=== PATIENT | male | born 1950 | race Caucasian/White ===

== ENCOUNTER 2020-07-02 20:33 | Inpatient (IN) | payer MEDICARE, SELFPAY ==
[2020-07-02 20:35] VITALS: BP 165/92; PULSE 121; RESP 42; TEMP 36.6; O2SAT 82; BMI 55.3
[2020-07-02 20:43] LABS: ABG Base Excess -0.8 mmol/L (-2.4-2.3); ABG HCO3 25.5 mmhg (22.0-26.0); ABG Oxygen Saturation 100 % (90-100); ABG PH 7.31 mmol/L (7.35-7.45); ABG PO2 254.9 mmhg (80-100)
--- NOTE | 2020-07-02 20:44 | XR_ITS ---
PROCEDURE: XR CHEST PORTABLE CLINICAL HISTORY: shortness of air Shortness of air COMPARISON: No exams were available for comparison FINDINGS: There is cardiomegaly. Diffuse consolidation involves the right upper and right lower lobe consistent with pneumonia. No acute bony abnormalities. IMPRESSION: Right-sided pneumonia Dictated by: Quinton Aguero MD 07/03/2020 05:09 Quinton Aguero MD in [place] 07/03/2020 05:09
[2020-07-02 20:45] LABS: Allen's Test Acceptable; Oxygen 100 %; Source Right Radial
[2020-07-02 20:46] LABS: ABG PCO2 51.6 mmhg (35.0-45.0)
--- NOTE | 2020-07-02 20:51 | ECG_ITS ---
APPROVED REPORT Exam: Resting ECG HR:104 bpm ECG Measurements Heart Rate 104 AXES QRSd 80 QRS 103 QT 364 T 41 QTc 478 Conclusion Atrial fibrillation with rapid ventricular response Rightward axis Low voltage QRS Abnormal ECG Electronically signed by : Omero Linares, 07/03/2020 11:36:21
[2020-07-02 20:56] LABS: Microscopic, Urine URINE MICROSCOPIC (MICROSCOPIC)
[2020-07-02 20:57] VITALS: RESP 20; RESP 3
[2020-07-02 21:04] LABS: Basophils # 0.1 K/mm3 (0-0.2); Basophils % 0.5 % (0.1-2.0); Eosinophils # 0.1 K/mm3 (0.0-0.4); Eosinophils % 0.5 % (0.1-12.0); Hematocrit 42.5 % (42.0-52.0); Hemoglobin 13.6 g/dL (14.1-18.0); Lymphocytes # 1.9 K/mm3 (0.7-4.5); Lymphocytes % 8.6 % (10-50); Mean Corpuscular HGB Conc 31.9 g/dL (31.8-35.4); Mean Corpuscular Hemoglobin 25.9 pg (27.0-31.2); Mean Corpuscular Volume 81.1 fl (80-94); Mean Platelet Volume 8.7 fl (7.4-10.4); Monocytes # 1.1 K/mm3 (0.1-1.0); Monocytes % 4.9 % (1.7-9.3); Neutrophils # 18.5 K/mm3 (1.8-7.8); Neutrophils % 85.5 % (37.0-80.0); Platelet Count 208 K/mm3 (142-424); Red Blood Count 5.23 M/mm3 (4.60-6.20); Red Cell Distribution Width 16.3 % (11.5-17.5)
[2020-07-02 21:09] LABS: White Blood Count 21.6 K/mm3 (4.8-10.8)
[2020-07-02 21:10] LABS: MANUAL DIFFERENTIAL MANUAL DIFFERENTIAL (MANUAL DIFF)
[2020-07-02 21:13] LABS: Lactic Acid 1.5 mmol/L (0.7-2.1)
[2020-07-02 21:13] LABS: Anion Gap 12.2 mEq/L (5-15); Blood Urea Nitrogen 17 mg/dl (9-20); Calcium 9.3 mg/dl (8.4-10.2); Carbon Dioxide 32 mmol/L (22.0-30.0); Chloride 102 mmol/L (98-107); Creatinine Clearance Estimated 63 mL/min (50-200); Estimated Glomerular Filt Rate 66 ml/min (>60); GFR (African American) 80 ML/MIN (>60); Glucose 305 mg/dl (74-100); Potassium 4.2 mmoL/L (3.5-5.1); Sodium 142 mmol/L (136-145)
[2020-07-02 21:22] LABS: Anisocytosis 1+; Hypochromasia 2+; Lymphocytes % 7 % (10-50); Microcytosis 1+; Monocytes % 1 % (2-9); Neutrophils % 86 % (42-76); Platelet Estimate Normal; Total Cells Counted 100
[2020-07-02 21:26] LABS: Coronavirus 19 IgG Antibody Negative (Negative); Coronavirus 19 IgM Antibody Negative (Negative)
[2020-07-02 21:27] LABS: NT Pro Brain Natriuretic Pep. 3400 pg/mL (0-125)
[2020-07-02 21:29] LABS: Appearance,Urine CLEAR (Clear); Bilirubin,Urine Negative (Negative); Blood, Urine 2+ (Negative); Color,Urine YELLOW (Yellow); Glucose,Urine (UA) TRACE (Negative); Ketones,Urine Negative (Negative); Leukocyte Esterase,Urine Negative (Negative); Nitrate,Urine POSITIVE (Negative); Protein,Urine 3+ (Negative); Specific Gravity, Urine 1.025 (1.005-1.030)
[2020-07-02 21:31] LABS: Procalcitonin 0.154 ng/mL (0.0-2.0); Troponin I < 0.01 ng/ml (0.00-0.034)
[2020-07-02 21:32] LABS: Amorphous Sediment,Urine Trace /lpf; Bacteria,Urine Trace /lpf; Mucus,Urine Trace /lpf; RBC,Urine 20-50 #/hpf (0-3); WBC,Urine 20-50 #/hpf (0-3)
[2020-07-02 21:45] LABS: Thyroid Stimulating Hormone 2.03 uIU/mL (0.465-4.68)
[2020-07-02 22:01] VITALS: BP 141/90; PULSE 103; RESP 22; O2SAT 95
--- NOTE | 2020-07-02 22:09 | HMH.EDSOB ---
ED Disposition Clinical Impression: JOB (obstructive sleep apnea), Severe sepsis with acute organ dysfunction Respiratory failure with hypercapnia Qualifiers: Chronicity: acute on chronic Qualified Code(s): J96.22 - Acute and chronic respiratory failure with hypercapnia Congestive heart failure Qualifiers: Heart failure type: unspecified Heart failure chronicity: acute on chronic Qualified Code(s): I50.9 - Heart failure, unspecified A-fib Qualifiers: Atrial fibrillation type: longstanding persistent Qualified Code(s): I48.11 - Longstanding persistent atrial fibrillation Obesity Qualifiers: Obesity type: due to excess calories Obesity classification: adult class 3 (BMI >= 40) Serious obesity comorbidity presence: with serious comorbidity Body mass index: BMI 50.0-59.9 Qualified Code(s): E66.01 - Morbid (severe) obesity due to excess calories UTI (urinary tract infection) Qualifiers: Urinary tract infection type: site unspecified Hematuria presence: without hematuria Qualified Code(s): N39.0 - Urinary tract infection, site not specified Diabetes mellitus Qualifiers: Diabetes mellitus type: type 2 Diabetes mellitus mcfp insulin use: unspecified mcfp insulin use status Diabetes mellitus complication status: with other specified complication Qualified Code(s): E11.69 - Type 2 diabetes mellitus with other specified complication Disposition: Admitted As Inpatient Condition on Discharge: Serious - Critical Care Critical Care Time: No Attestation: On 07/02/20, the high probability of a clinically significant, sudden or life threatening deterioration of the following system(s) required my full and direct attention, intervention and personal management. The time I documented below is in addition to time spent performing reported procedures but includes the following listed in this critical care notation. Medical Decision Making - Medical Records Medical records reviewed: Yes: I reviewed the patient's medical records. - Julio Inquiry Pt receiving controlled substance: No Vital Signs: 07/02/20 20:35 07/02/20 22:01 07/02/20 22:30 Temperature 97.8 F Temperature Source Rectal Pulse Rate [Right Brachial] 121 H 103 H 105 H Respiratory Rate 42 H 22 22 Blood Pressure [Right Arm] 165/92 H 141/90 H 168/111 H Blood Pressure Mean [Right Arm] 116 107 130 Blood Pressure Source [Right Arm] Automatic Cuff Automatic Cuff Automatic Cuff Blood Pressure Position [Right Arm] Supine Sitting Sitting 02 Sat by Pulse Oximetry 82 L 95 94 L Oxygen Delivery Method Room Air CPAP BiPAP - Lab Data Lab results reviewed: Yes: I reviewed the patient's lab results. Lab Results 07/02/20 20:37: Urine Color Yellow, Urine Appearance Clear, Urine pH 7.0, Ur Specific [place] 1.025, Urine Protein 3+, Urine Glucose (UA) Trace, Urine Ketones Negative, Urine Blood 2+, Urine Nitrate Positive, Urine Bilirubin Negative, Urine Urobilinogen 2.0, Ur Leukocyte Esterase Negative, Urine RBC 20-50, Urine WBC 20-50, Amorphous Sediment Trace, Urine Bacteria Trace, Urine Mucus Trace 07/02/20 20:37: WBC 21.6 H*, RBC 5.23, Hgb 13.6 L, Hct 42.5, MCV 81.1, MCH 25.9 L, MCHC 31.9, RDW 16.3, Plt Count 208, MPV 8.7, Neut % (Auto) 85.5 H, Lymph % (Auto) 8.6 L, [place] % (Auto) 4.9, Eos % (Auto) 0.5, Baso % (Auto) 0.5, Neut # (Auto) 18.5 H, Lymph # (Auto) 1.9, [place] # (Auto) 1.1 H, Eos # (Auto) 0.1, Baso # (Auto) 0.1, Total Counted 100, Neutrophils % (Manual) 86 H, Band Neutrophils % 6.0, Lymphocytes % (Manual) 7 L, Monocytes % (Manual) 1 L, Platelet Estimate Normal, Hypochromasia 2+, Anisocytosis 1+, Microcytosis 1+ 07/02/20 20:37: Sodium 142, Potassium 4.2, Chloride 102, Carbon Dioxide 32 H, Anion Gap 12.2, BUN 17, Creatinine 1.10, Estimated Creat Clear 63, Estimated GFR 66, Est GFR ( Amer) 80, Glucose 305 H, Calcium 9.3, Troponin I < 0.01, NT-Pro-B Natriuret Pep 3400 H, Procalcitonin 0.154, TSH 2.03, Thyroxine (T4) 11.0 07/02/20 20:37: SARS-CoV-2 IgG Ab (Rapid) Ne
[2020-07-02 22:30] VITALS: BP 168/111; PULSE 105; RESP 22; O2SAT 94
[2020-07-02 22:30] LABS: Adenovirus,PCR Not Detected (NotDetected); Bordetella Pertussis Not Detected (NotDetected); Chlamydophila Pneumoniae, PCR Not Detected (NotDetected); Coronavirus 19, PCR Not Detected (NotDetected); Coronavirus 229E Not Detected (NotDetected); Coronavirus NL63 Not Detected (NotDetected); Coronavirus OC43 Not Detected (NotDetected); Coronovirus HKU1,PCR Not Detected (NotDetected); Human Metapneumovirus Not Detected (NotDetected); Influenza A, PCR Not Detected (NotDetected); Influenza AH1, 2009 Not Detected (NotDetected); Influenza AH1, PCR Not Detected (NotDetected); Influenza AH3,PCR Not Detected (NotDetected); Influenza B, PCR Not Detected (NotDetected); Mycoplasma Pneumoniae, PCR Not Detected (NotDetected); Parainfluenza 1, PCR Not Detected (NotDetected); Parainfluenza 2, PCR Not Detected (NotDetected); Parainfluenza 3, PCR Not Detected (NotDetected); Parainfluenza 4, PCR Not Detected (NotDetected); Respiratory Syncytial Virus Not Detected (NotDetected); Rhinovirus/Enterovirus Not Detected (NotDetected)
--- NOTE | 2020-07-02 22:58 | PC.NURSE ---
call placed to house, bed assignment obtained
[2020-07-02 23:30] VITALS: BP 156/89; PULSE 87; RESP 23; O2SAT 96
[2020-07-03] VITALS (18 sets, daily range): BP systolic 147–198; BP diastolic 86–114; PULSE 59–110; RESP 18–27; TEMP 36.3–36.8; O2SAT 92–100; BMI 60.5; BMI 61.2; BMI 60.9
[2020-07-03 00:34] LABS: Troponin I < 0.01 ng/ml (0.00-0.034)
--- NOTE | 2020-07-03 01:19 | PC.NURSE ---
PT ARRIVED TO FLOOR VIA STRETCHER AT [id number].
[2020-07-03 03:08] LABS: Basophils % 0.2 % (0.1-2.0); Eosinophils % 0.1 % (0.1-12.0); Hematocrit 41.4 % (42.0-52.0); Hemoglobin 13.2 g/dL (14.1-18.0); Lymphocytes # 0.6 K/mm3 (0.7-4.5); Mean Corpuscular HGB Conc 31.8 g/dL (31.8-35.4); Mean Corpuscular Hemoglobin 25.6 pg (27.0-31.2); Mean Corpuscular Volume 80.5 fl (80-94); Mean Platelet Volume 8.6 fl (7.4-10.4); Monocytes # 0.3 K/mm3 (0.1-1.0); Monocytes % 2.6 % (1.7-9.3); Neutrophils # 11.2 K/mm3 (1.8-7.8); Neutrophils % 92.2 % (37.0-80.0); Platelet Count 140 K/mm3 (142-424); Red Blood Count 5.14 M/mm3 (4.60-6.20); Red Cell Distribution Width 16.5 % (11.5-17.5); White Blood Count 12.2 K/mm3 (4.8-10.8)
[2020-07-03 03:13] LABS: Chloride 101 mmol/L (98-107); Sodium 141 mmol/L (136-145)
[2020-07-03 03:14] LABS: Potassium 4.3 mmoL/L (3.5-5.1)
[2020-07-03 03:16] LABS: Blood Urea Nitrogen 18 mg/dl (9-20); Creatinine Clearance Estimated 57 mL/min (50-200); Estimated Glomerular Filt Rate 66 ml/min (>60); GFR (African American) 80 ML/MIN (>60)
[2020-07-03 03:17] LABS: Anion Gap 9.3 mEq/L (5-15); Calcium 9.3 mg/dl (8.4-10.2); Carbon Dioxide 35 mmol/L (22.0-30.0); Cholesterol 140 mg/dl (140-200); Glucose 332 mg/dl (74-100); Magnesium 2.3 mg/dl (1.6-2.3); Triglycerides 113 mg/dl (30-150); VLDL Cholesterol 23 mg/dL (0-40)
[2020-07-03 03:29] LABS: Troponin I 0.02 ng/ml (0.00-0.034)
[2020-07-03 03:43] LABS: Chol/HDL Ratio 5.6 (1-3.5); HDL Cholesterol 25 mg/dl (40-60)
--- NOTE | 2020-07-03 04:26 | PC.WOUNDNOTE ---
Wound Location: BLE rough, scaly skin
--- NOTE | 2020-07-03 04:28 | PC.WOUNDNOTE ---
Wound Location: Scabbed & reddened areas to R ABD
--- NOTE | 2020-07-03 06:13 | PC.NURSE ---
YOHANA HOLLINS NOTIFIED OF CONSULT.
--- NOTE | 2020-07-03 06:45 | PC.NURSE ---
Pt is A&Ox4 and has rested intermittently this shift. Pt has diuresed well with a total of 3,350ml post Lasix administration in the ER. Pt has denied any SOA or dyspnea t/o shift. Lungs sounds clear but diminished and SaO2 has been 99% on Bipap. Pt tolerated mask well. 3 moderate sized scabbed areas with mild redness outside of scab to R ABD, no heat or tenderness noted. Rough, scaly skin to BLE. Bello cath in place draining clear ylw urine to gravity. Controlled Afib on tele. Pt continues to be HTN this shift. Call light within reach.
--- NOTE | 2020-07-03 07:18 | HMH.PHAVTE ---
[facility] Pharmacy VTE Monitoring - Patient Demographics Admission date: 07/02/20 Report Date: 07/03/20 Time: 07:18 Allergies/Adverse Reactions: Patient Allergies No Known Allergies Allergy (Verified 07/02/20 20:44) Height: 1.68 m Weight: 171.9 kg Patient Problems: Current Active Problems Respiratory failure with hypercapnia (Acute) Congestive heart failure (Acute) A-fib (Acute) Obesity (Acute) JOB (obstructive sleep apnea) (Acute) Severe sepsis with acute organ dysfunction (Acute) UTI (urinary tract infection) (Acute) Diabetes mellitus (Acute) - VTE Risk Labs: VTE Related Lab Results Hgb 13.2 g/dL (14.1-18.0) L 07/03/20 03:00 Hct 41.4 % (42.0-52.0) L 07/03/20 03:00 Plt Count 140 K/mm3 (142-424) L D 07/03/20 03:00 BUN 18 mg/dl (9-20) 07/03/20 03:00 Creatinine 1.10 mg/dl (0.66-1.25) 07/03/20 03:00 Estimated Creat Clear 57 mL/min (50-200) 07/03/20 03:00 VTE Score: 6 VTE Risk Level: Moderate Risk - Prophylaxis VTE Prophylaxis Ordered?: Yes Types of VTE Prophylaxis: TEDS Knee High, Pharmacological Location of Applied Device: Bilateral Lower Extremeties Pharmacologic Type: Other (ELIQUIS)
--- NOTE | 2020-07-03 07:35 | HMH.CNCARD ---
History of Present Illness Consult date: 07/03/20 Requesting physician: John Milligan Consult reason: congestive heart failure Chief complaint: SOA Additional Medical History:: 1. DM, treated for 6 yrs 2. HTN, treated for many years 3. History of tobacco use, discontinued about 2004, formerly smoked 2 ppd A. COPD 4. Obesity with BMI >60 A. JOB with CPAP use at home at night 5. Hyperthyroidism, s/p medical therapy 6. History of knee surgery with pin placement 7. Atrial fibrillation A. Chronic anticoagulation therapy with Eliquis B. CHADS-VASc score of 4 (age, HTN, DM, CHF) History of present illness: 69-year-old white male with multiple medical problems as noted above presented to the emergency department for acute shortness of breath while ambulating at home. Patient has a longstanding history of COPD and obstructive sleep apnea for which he uses BiPAP at night. Patient discontinued tobacco use 15 years ago. He has chronic atrial fibrillation for which he takes Eliquis therapy with no history of TIA/CVA symptoms. He has been treated for diabetes for about 6 years and has some neuropathy symptoms in his feet. Patient denies any history of myocardial infarction or coronary stenting. Pt has been on BiPAP since admission and is breathing better after significant diuresis and being started on antibiotics. EKG is a.fib with mild RVR and RAD. No acute process noted. Troponins WNL x 3. [facility] History Medical History: Reports:: Atrial Fibrillation, Congestive Heart Failure, Diabetes Mellitus Type 2, Hypertension, Peripheral Artery Disease Denies:: Cancer, Diabetes Mellitus Type 1, Internal Pacemaker *Have you ever received a pneumonia vaccine?: Yes *Have you received a flu vaccine this season?: Yes Other Surgeries: No: Pacemaker - *Social History Alcohol Intake: never *Occupational Status:: retired *Travel in the last 8 weeks: None Family Hx:: Non-contributory Meds Home Medications Medication Instructions Recorded Confirmed Type Apixaban [Eliquis] 5 mg PO BID 07/02/20 07/03/20 History Aspirin [Aspirin 81mg chewable 81 mg PO DAILY 07/02/20 07/02/20 History tab] Fosinopril Sodium 40 mg PO DAILY 07/02/20 07/02/20 History Metformin HCl [Metformin 1000mg 1,000 mg PO BIDWM 07/02/20 07/03/20 History Tablets] Sertraline HCl [Zoloft 50mg tablet] 50 mg PO DAILY 07/02/20 07/02/20 History allopurinoL [Zyloprim] 300 mg PO DAILY 07/02/20 07/02/20 History carvediloL [Carvedilol 25mg Tab] 25 mg PO BID 07/03/20 07/03/20 History glipiZIDE [Glucotrol 5mg tablet] 10 mg PO BID 07/03/20 07/03/20 History hydroCHLOROthiazide [HCTZ 25mg 25 mg PO DAILY 07/03/20 07/03/20 History tab] Allergies Allergy/AdvReac Type Severity Reaction Status Date / Time No Known Allergies Allergy Verified 07/02/20 20:44 Exam Vital signs and Labs for Last 24 Hours: Temp Pulse Resp BP Pulse Ox 98.2 F 94 H 23 198/98 H 99 07/03/20 04:00 07/03/20 04:00 07/03/20 04:00 07/03/20 04:00 07/03/20 04:00 Laboratory Results - last 24 hr 07/02/20 20:37: Urine Color Yellow, Urine Appearance Clear, Urine pH 7.0, Ur Specific [place] 1.025, Urine Protein 3+, Urine Glucose (UA) Trace, Urine Ketones Negative, Urine Blood 2+, Urine Nitrate Positive, Urine Bilirubin Negative, Urine Urobilinogen 2.0, Ur Leukocyte Esterase Negative, Urine RBC 20-50, Urine WBC 20-50, Amorphous Sediment Trace, Urine Bacteria Trace, Urine Mucus Trace 07/02/20 20:37: WBC 21.6 H*, RBC 5.23, Hgb 13.6 L, Hct 42.5, MCV 81.1, MCH 25.9 L, MCHC 31.9, RDW 16.3, Plt Count 208, MPV 8.7, Neut % (Auto) 85.5 H, Lymph % (Auto) 8.6 L, [place] % (Auto) 4.9, Eos % (Auto) 0.5, Baso % (Auto) 0.5, Neut # (Auto) 18.5 H, Lymph # (Auto) 1.9, [place] # (Auto) 1.1 H, Eos # (Auto) 0.1, Baso # (Auto) 0.1, Total Counted 100, Neutrophils % (Manual) 86 H, Band Neutrophils % 6.0, Lymphocytes % (Manual) 7 L, Monocytes % (Manual) 1 L, Platelet Estimate Normal, Hypochromasia 2+, Anisocytosi
[2020-07-03 07:41] LABS: POC Glucose,Bedside 308 (70-110)
--- NOTE | 2020-07-03 08:00 | CA_ITS ---
APPROVED REPORT EXAM: Comprehensive 2D, Doppler, and color-flow Echocardiogram [place] Installer: Angeline Alcantara CRT Ht: 5 ft 9 in Wt: 375lbs BSA: 2.70 BP: 168/111 mmHg Indications: Congestive Heart Failure, COPD, Shortness of Breath, Atrial Fibrillation, Diabetes, Obesity, sepsis 2D Dimensions Aortic Root 2.84 cm LVOT 2.13 cm (M/F) 1.5-2.5 M-Mode Dimensions RVDd 3.51 cm (0.9-2.6) LA Diam 5.11 cm (1.9-4.0) LVDd 6.11 cm (3.5-5.7) Ao Diam 4.20 cm (2.0-3.7) LVDs 4.54 cm (3.5-5.7) IVSd 1.53 cm (0.6-1.1) PWd 1.91 cm (0.6-1.1) EF (Teich) 49.70% FS 25.70% EDV (Teich) 187.60 mL ESV (Teich) 94.40 mL LV Diastology E Decel Time 150.00 (160-240 msec) E/A Ratio 1.25 Aortic Valve AI PHT 494.00 ms AO Peak GR. 5.80 mmHg Mitral Valve MV E Max Aaron. 107.00 (40-130 cm/s) MV A Velocity 86.00 (40-130 cm/s) E/A Ratio 1.25 MV Decel. Time 150.00 (160-240 ms) MV PHT 44.00 ms Pulmonary Valve PV Peak Velocity 72.00 (50-150 cm/s) Tricuspid Valve TR P. Velocity 255.00 cm/s Left Ventricle Technically very difficult and poor study because of the patient factors and poor acoustic windows. Repeat study with Definity contrast is recommended. Endocardial surfaces are very poorly visualized. Left atrium is moderately enlarged, left ventricle is normal size, mild concentric left ventricular hypertrophy, probably preserved left ventricular systolic function, visually estimated ejection fraction is approximately 50%, wall motion analysis is difficult from this study. Diastolic parameters are inconclusive. Right Ventricle Right atrium and right ventricle are normal size and contractility. Aortic Valve Aortic valve is thickened and calcified, there is no aortic stenosis, there is mild aortic insufficiency. Mitral Valve Mitral valve is grossly normal, there is mild mitral regurgitation. Tricuspid Valve Tricuspid valve is grossly normal, there is mild tricuspid regurgitation, tricuspid regurgitation jet velocity is inadequate for calculation of the right ventricular systolic pressure. Pulmonic Valve Pulmonic valve is poorly visualized. Great Vessels Aortic root is normal size. Pericardium Small pericardial effusion noted Conclusion 1. Technically very difficult and poor study as described above, if clinically indicated repeat study with Definity contrast is recommended. Probably preserved left ventricular systolic function, visually estimated ejection fraction 50% as described above, diastolic parameters are inconclusive. 2. Moderately enlarged left atrium. 3. Mild mitral and tricuspid regurgitation. 4. Small pericardial effusion noted. Electronically signed by : Himanshu Griggs, 07/03/2020 10:37:19
--- NOTE | 2020-07-03 08:32 | HMH.PHAINT ---
home medication list clarified with [facility]
--- NOTE | 2020-07-03 09:01 | HMH.HP ---
*Admission Date: 07/02/20 *Chief complaint: soa *History of present illness: 69-year-old male presented to emergency department for acute shortness of breath while ambulating at home. History of COPD,diabetes and obstructive sleep apnea for which he uses BiPAP at night. Hx of chronic atrial fibrillation for which he takes Eliquis therapy. Chest x ray on admission states Right-sided pneumonia. Pt admitted for pneumonia and CHF, will consult cardiology and pulmonary. [facility] History I have reviewed the patient's past medical history: Yes Medical History: Reports:: Atrial Fibrillation, Congestive Heart Failure, Diabetes Mellitus Type 2, Hypertension, Peripheral Artery Disease Denies:: Cancer, Diabetes Mellitus Type 1, Internal Pacemaker *Have you ever received a pneumonia vaccine?: Yes *Have you received a flu vaccine this season?: Yes Other Surgeries: No: Pacemaker - *Social History Alcohol Intake: never *Occupational Status:: retired *Travel in the last 8 weeks: None Family Hx:: No significant family history Review of Systems - Review of Systems Review of systems:: pertinent systems reviewed and negative unless documented below - Constitutional Reports fatigue, Denies body ache(s) - Eyes Denies change in vision - ENT Denies bleeding gums - *Cardiovascular Reports shortness of breath, Reports shortness of breath with activity, Denies chest pain at rest, Denies chest pain with activity - *Respiratory Reports shortness of breath, Reports shortness of breath with activity - *Gastrointestinal Denies nausea, Denies vomiting - *Genitourinary Denies urinary frequency - *Musculoskeletal Denies joint pain - Integumentary/Breasts Reports sores, Denies bleeding lesions, Denies rash - *Neurologic Reports dizziness, Denies headache(s), Denies seizure-like activity - Psychiatric Denies anxiety - Endocrine Denies excessive sweating - Hematologic/Lymphatic Denies easy bruising - Allergic/Immunologic Denies itchy eyes Meds Home Medications Medication Instructions Recorded Confirmed Type Apixaban [Eliquis] 5 mg PO BID 07/02/20 07/03/20 History Aspirin [Aspirin 81mg chewable 81 mg PO DAILY 07/02/20 07/02/20 History tab] Fosinopril Sodium 40 mg PO DAILY 07/02/20 07/02/20 History Metformin HCl [Metformin 1000mg 1,000 mg PO BIDWM 07/02/20 07/03/20 History Tablets] Sertraline HCl [Zoloft 50mg tablet] 50 mg PO DAILY 07/02/20 07/02/20 History allopurinoL [Zyloprim] 300 mg PO DAILY 07/02/20 07/02/20 History carvediloL [Carvedilol 25mg Tab] 25 mg PO BID 07/03/20 07/03/20 History glipiZIDE [Glucotrol 5mg tablet] 10 mg PO BID 07/03/20 07/03/20 History hydroCHLOROthiazide [HCTZ 25mg 25 mg PO DAILY 07/03/20 07/03/20 History tab] Allergies Allergy/AdvReac Type Severity Reaction Status Date / Time No Known Allergies Allergy Verified 07/02/20 20:44 Exam Vital signs and Labs for Last 24 Hours: Temp Pulse Resp BP Pulse Ox 98.2 F 94 H 23 198/98 H 99 07/03/20 04:00 07/03/20 04:00 07/03/20 04:00 07/03/20 04:00 07/03/20 04:00 Laboratory Results - last 24 hr 07/02/20 20:37: Urine Color Yellow, Urine Appearance Clear, Urine pH 7.0, Ur Specific [place] 1.025, Urine Protein 3+, Urine Glucose (UA) Trace, Urine Ketones Negative, Urine Blood 2+, Urine Nitrate Positive, Urine Bilirubin Negative, Urine Urobilinogen 2.0, Ur Leukocyte Esterase Negative, Urine RBC 20-50, Urine WBC 20-50, Amorphous Sediment Trace, Urine Bacteria Trace, Urine Mucus Trace 07/02/20 20:37: WBC 21.6 H*, RBC 5.23, Hgb 13.6 L, Hct 42.5, MCV 81.1, MCH 25.9 L, MCHC 31.9, RDW 16.3, Plt Count 208, MPV 8.7, Neut % (Auto) 85.5 H, Lymph % (Auto) 8.6 L, [place] % (Auto) 4.9, Eos % (Auto) 0.5, Baso % (Auto) 0.5, Neut # (Auto) 18.5 H, Lymph # (Auto) 1.9, [place] # (Auto) 1.1 H, Eos # (Auto) 0.1, Baso # (Auto) 0.1, Total Counted 100, Neutrophils % (Manual) 86 H, Band Neutrophils % 6.0, Lymphocytes % (Manual) 7 L, Monocytes % (Manual)
--- NOTE | 2020-07-03 14:00 | PC.NURSE ---
PT GIVEN NEBULIZER CUP AND INSTRCTED ON WHAT TO DO. NO SAMPLE COULD BE GIVEN AT THIS TIME. CUP LEFT AT BEDSIDE.
--- NOTE | 2020-07-03 15:14 | HMH.PULMCON ---
*Admission Date: 07/02/20 *Reason for consult:: Acute hypoxic respiratory failure *History of present illness: Mr. Grimaldo is a 69-year-old male prior history of COPD, CHF, JOB presented to the hospital with worsening respiratory failure not associated with any fevers chills or weight loss. Patient admits multiple episodes of similar symptoms previously. Denies any sick contacts. [facility] [place] History Medical History: Reports:: Atrial Fibrillation, Congestive Heart Failure, Diabetes Mellitus Type 2, Hypertension, Peripheral Artery Disease Denies:: Cancer, Diabetes Mellitus Type 1, Internal Pacemaker *Have you ever received a pneumonia vaccine?: Yes *Have you received a flu vaccine this season?: Yes Other Surgeries: No: Pacemaker - *Social History Alcohol Intake: never *Occupational Status:: retired *Travel in the last 8 weeks: None Family Hx:: Non-contributory ROS - Cons Denies fatigue, Denies fever(s) - Card Reports shortness of breath, Reports shortness of breath with activity, Reports leg swelling - Resp Respiratory: Reports shortness of breath, Denies change in phlegm color, Reports chest congestion, Reports cough, Reports non-productive cough, Reports dyspnea, Reports dyspnea on exertion, Denies excessive phlegm production, Denies coughing up blood, Denies pain on inspiration, Denies pain with cough, Denies cough with sputum production Meds Home Medications Medication Instructions Recorded Confirmed Type Apixaban [Eliquis] 5 mg PO BID 07/02/20 07/03/20 History Aspirin [Aspirin 81mg chewable 81 mg PO DAILY 07/02/20 07/02/20 History tab] Fosinopril Sodium 40 mg PO DAILY 07/02/20 07/02/20 History Metformin HCl [Metformin 1000mg 1,000 mg PO BIDWM 07/02/20 07/03/20 History Tablets] Sertraline HCl [Zoloft 50mg tablet] 50 mg PO DAILY 07/02/20 07/02/20 History allopurinoL [Zyloprim] 300 mg PO DAILY 07/02/20 07/02/20 History carvediloL [Carvedilol 25mg Tab] 25 mg PO BID 07/03/20 07/03/20 History glipiZIDE [Glucotrol 5mg tablet] 10 mg PO BID 07/03/20 07/03/20 History hydroCHLOROthiazide [HCTZ 25mg 25 mg PO DAILY 07/03/20 07/03/20 History tab] Allergies Allergy/AdvReac Type Severity Reaction Status Date / Time No Known Allergies Allergy Verified 07/02/20 20:44 Exam - Constitutional Constitutional:: no acute distress, comfortable - HENMT Exam HENMT: atraumatic - Eye Exam Eyes:: eyelids normal - Neck Exam Neck:: thyroid normal - Respiratory Exam Respiratory:: bibailar crackels heard, no respiratory distress - Cardiovascular Exam Cardiac:: S1, S2 - GI Exam GI:: soft, obese - Skin Exam Skin: warm - Neurological Exam Neurological: alert, awake, normal cognition - Extremities Exam Extremities: no cyanosis, no clubbing, edema - Psychiatric Exam Psychiatric: normal affect Internal Medicine - CN: Reslt - Labs CBC & Chem 7: 07/03/20 03:00 07/03/20 03:00 Labs: Short CBC 07/02/20 07/03/20 Range/Units 20:37 03:00 WBC 21.6 H* 12.2 H D (4.8-10.8) K/mm3 Hgb 13.6 L 13.2 L (14.1-18.0) g/dL Hct 42.5 41.4 L (42.0-52.0) % Plt Count 208 140 L D (142-424) K/mm3 BMP 07/02/20 07/03/20 20:37 03:00 Sodium 142 141 Potassium 4.2 4.3 Chloride 102 101 Carbon Dioxide 32 H 35 H BUN 17 18 Creatinine 1.10 1.10 Glucose 305 H 332 H Calcium 9.3 9.3 Cardiac Enzymes 07/02/20 07/02/20 07/03/20 Range/Units 20:37 23:55 03:00 Troponin I < 0.01 < 0.01 0.02 (0.00-0.034) ng/ml Urine 07/02/20 Range/Units 20:37 Urine Color Yellow (Yellow) Urine Appearance Clear (Clear) Urine pH 7.0 (5.0-8.5) Ur Specific [place] 1.025 (1.005-1.030) Urine Protein 3+ (Negative) Urine Glucose (UA) Trace (Negative) - ABG Interpretation ABG results: 07/02/20 20:41 ABG pH 7.31 L ABG pCO2 51.6 H ABG pO2 254.9 H ABG HCO3 25.5 ABG Total CO2 27.0 ABG O2 Saturation 100 ABG Base Excess -0.8 Assess
[2020-07-03 16:14] LABS: POC Glucose,Bedside 283 (70-110)
--- NOTE | 2020-07-03 16:38 | PC.NURSE ---
Told KENDRA King about BP running high
--- NOTE | 2020-07-03 18:58 | PC.NURSE ---
Pt's O2 sat on room air = 90%,
[2020-07-03 20:56] LABS: POC Glucose,Bedside 203 (70-110)
--- NOTE | 2020-07-03 23:40 | PC.NURSE ---
RT collected SPT and sent it to lab from 2nd floor at this time.
--- NOTE | 2020-07-03 23:59 | PC.NURSE ---
spoke to Marcos with pharmacy regarding vancomycin dosing, states to give 3g loading dose in 500ml of ns then 2.5g in 500ml of ns every 12 hours, repeated back to pharmacist at this time
[2020-07-04] VITALS (11 sets, daily range): BP systolic 133–190; BP diastolic 66–118; PULSE 50–92; RESP 18–26; TEMP 36.3–36.7; O2SAT 87–99; BMI 608411.9
--- NOTE | 2020-07-04 04:32 | PC.NURSE ---
pt is alert and oriented and able to make needs known, pt has rested well thorughout shift with no episodes of sob, bipap remains in place, pt was started on vancomycin per md orders d/t gram positive cocci in clusters and pcr of staphylococcus, pt placed in contact precaution, crackles noted throughout lungs, no cough noted, heart rate regular, bs x 4, edema continues to hands and tibial nonpitting, cristobal catheter patent and draining ella colored urine, no needs at this time, call light within reach will continue to monitor at this time
[2020-07-04 05:41] LABS: POC Glucose,Bedside 198 (70-110)
[2020-07-04 07:03] LABS: Basophils % 0.3 % (0.1-2.0); Eosinophils # 0.1 K/mm3 (0.0-0.4); Eosinophils % 0.4 % (0.1-12.0); Hematocrit 37.2 % (42.0-52.0); Hemoglobin 12.4 g/dL (14.1-18.0); Lymphocytes # 1.8 K/mm3 (0.7-4.5); Lymphocytes % 14.6 % (10-50); Mean Corpuscular HGB Conc 33.3 g/dL (31.8-35.4); Mean Corpuscular Hemoglobin 27.1 pg (27.0-31.2); Mean Corpuscular Volume 81.3 fl (80-94); Mean Platelet Volume 8.6 fl (7.4-10.4); Monocytes # 0.7 K/mm3 (0.1-1.0); Monocytes % 5.4 % (1.7-9.3); Neutrophils # 9.8 K/mm3 (1.8-7.8); Neutrophils % 79.3 % (37.0-80.0); Platelet Count 157 K/mm3 (142-424); Red Blood Count 4.58 M/mm3 (4.60-6.20); Red Cell Distribution Width 16.8 % (11.5-17.5); White Blood Count 12.4 K/mm3 (4.8-10.8)
[2020-07-04 07:12] LABS: Anion Gap 6.5 mEq/L (5-15); Blood Urea Nitrogen 25 mg/dl (9-20); Calcium 9.1 mg/dl (8.4-10.2); Carbon Dioxide 37 mmol/L (22.0-30.0); Chloride 102 mmol/L (98-107); Creatinine Clearance Estimated 153 mL/min (50-200); Estimated Glomerular Filt Rate 66 ml/min (>60); GFR (African American) 80 ML/MIN (>60); Glucose 193 mg/dl (74-100); Potassium 3.5 mmoL/L (3.5-5.1); Sodium 142 mmol/L (136-145)
--- NOTE | 2020-07-04 09:32 | HMH.PHACONS ---
- Pharmacy Consult Date: 07/04/20 Time: 09:32 Referring provider: DR. SCHRADER Reason for Consult:: VANCOMYCIN DOSING Allergies and ADEs:: Allergies Allergy/AdvReac Type Severity Reaction Status Date / Time No Known Allergies Allergy Verified 07/02/20 20:44 Home Medications:: Home Medications Medication Instructions Recorded Confirmed Type Apixaban [Eliquis] 5 mg PO BID 07/02/20 07/03/20 History Aspirin [Aspirin 81mg chewable 81 mg PO DAILY 07/02/20 07/02/20 History tab] Fosinopril Sodium 40 mg PO DAILY 07/02/20 07/02/20 History Metformin HCl [Metformin 1000mg 1,000 mg PO BIDWM 07/02/20 07/03/20 History Tablets] Sertraline HCl [Zoloft 50mg tablet] 50 mg PO DAILY 07/02/20 07/02/20 History allopurinoL [Zyloprim] 300 mg PO DAILY 07/02/20 07/02/20 History carvediloL [Carvedilol 25mg Tab] 25 mg PO BID 07/03/20 07/03/20 History glipiZIDE [Glucotrol 5mg tablet] 10 mg PO BID 07/03/20 07/03/20 History hydroCHLOROthiazide [HCTZ 25mg 25 mg PO DAILY 07/03/20 07/03/20 History tab] Height: 1.68 cm Weight: 171 kg Laboratory Results:: Laboratory Results - last 24 hr 07/03/20 16:06: POC Glucose 283 H 07/03/20 20:22: POC Glucose 203 H 07/04/20 05:33: POC Glucose 198 H 07/04/20 06:35: WBC 12.4 H, RBC 4.58 L, Hgb 12.4 L, Hct 37.2 L, MCV 81.3, MCH 27.1, MCHC 33.3, RDW 16.8, Plt Count 157, MPV 8.6, Neut % (Auto) 79.3, Lymph % (Auto) 14.6, [place] % (Auto) 5.4, Eos % (Auto) 0.4, Baso % (Auto) 0.3, Neut # (Auto) 9.8 H, Lymph # (Auto) 1.8, [place] # (Auto) 0.7, Eos # (Auto) 0.1, Baso # (Auto) 0.0 07/04/20 06:35: Sodium 142, Potassium 3.5, Chloride 102, Carbon Dioxide 37 H, Anion Gap 6.5, BUN 25 H D, Creatinine 1.10, Estimated Creat Clear 153, Estimated GFR 66, Est GFR ( Amer) 80, Glucose 193 H, Calcium 9.1 Medical History: Reports:: Atrial Fibrillation, Congestive Heart Failure, Diabetes Mellitus Type 2, Hypertension, Peripheral Artery Disease Denies:: Cancer, Diabetes Mellitus Type 1, Internal Pacemaker Assessment and Plan (1) Respiratory failure with hypercapnia Status: Acute Qualifiers: Chronicity: acute on chronic Qualified Code(s): J96.22 - Acute and chronic respiratory failure with hypercapnia Category: Medical Code(s): J96.92 - Respiratory failure, unspecified with hypercapnia (2) Pneumonia Status: Acute Category: Medical Code(s): J18.9 - Pneumonia, unspecified organism (3) Congestive heart failure Status: Acute Qualifiers: Heart failure type: unspecified Heart failure chronicity: acute on chronic Qualified Code(s): I50.9 - Heart failure, unspecified Category: Medical Code(s): I50.9 - Heart failure, unspecified (4) A-fib Status: Acute Qualifiers: Atrial fibrillation type: longstanding persistent Qualified Code(s): I48.11 - Longstanding persistent atrial fibrillation Category: Medical Code(s): I48.91 - Unspecified atrial fibrillation (5) Diabetes mellitus Status: Acute Qualifiers: Diabetes mellitus type: type 2 Diabetes mellitus laborer marine terminal insulin use: unspecified mcc insulin use status Diabetes mellitus complication status: with other specified complication Qualified Code(s): E11.69 - Type 2 diabetes mellitus with other specified complication Category: Medical Code(s): E11.9 - Type 2 diabetes mellitus without complications (6) JOB (obstructive sleep apnea) Status: Acute Category: Medical Code(s): G47.33 - Obstructive sleep apnea (adult) (pediatric) (7) Obesity Status: Acute Qualifiers: Obesity type: due to excess calories Obesity classification: adult class 3 (BMI >= 40) Serious obesity comorbidity presence: with serious comorbidity Body mass index: BMI 50.0-59.9 Qualified Code(s): E66.01 - Morbid (severe) obesity due to excess calories; Z68.43 - Body mass index [BMI] 50.0-59.9, adult Category: Medical Code(s): E66.9 - Obesity, unspecified (8) Obesity hypoventilation syndrome Status: A
--- NOTE | 2020-07-04 10:03 | P.PN_ITS ---
Subjective Date: 07/04/20 Time: 10:03 Principal diagnosis: CHF, COPD exacerbation Interval history: 69-year-old white male in bed in no acute distress. States his breathing has improved but still with some shortness of breath. Exam Vital signs and Labs for Last 24 Hours: Temp Pulse Resp BP Pulse Ox 97.7 F 77 20 161/91 H 95 07/04/20 08:00 07/04/20 08:00 07/04/20 08:00 07/04/20 08:00 07/04/20 08:00 Laboratory Results - last 24 hr 07/03/20 16:06: POC Glucose 283 H 07/03/20 20:22: POC Glucose 203 H 07/04/20 05:33: POC Glucose 198 H 07/04/20 06:35: WBC 12.4 H, RBC 4.58 L, Hgb 12.4 L, Hct 37.2 L, MCV 81.3, MCH 27.1, MCHC 33.3, RDW 16.8, Plt Count 157, MPV 8.6, Neut % (Auto) 79.3, Lymph % (Auto) 14.6, [place] % (Auto) 5.4, Eos % (Auto) 0.4, Baso % (Auto) 0.3, Neut # (Auto) 9.8 H, Lymph # (Auto) 1.8, [place] # (Auto) 0.7, Eos # (Auto) 0.1, Baso # (Auto) 0.0 07/04/20 06:35: Sodium 142, Potassium 3.5, Chloride 102, Carbon Dioxide 37 H, Anion Gap 6.5, BUN 25 H D, Creatinine 1.10, Estimated Creat Clear 153, Estimated GFR 66, Est GFR ( Amer) 80, Glucose 193 H, Calcium 9.1 I & O for Last 24 hours: Intake & Output 07/01/20 07/02/20 07/03/20 07/04/20 11:59 11:59 11:59 11:59 Intake Total 1140 / 1140 1200 / 1200 Output Total 6150 / 6150 1080 / 1080 Balance -5010 / -5010 120 / 120 Weight 379 lb 3.121 oz 376 lb 15.847 oz Microbiology Reports for the Last 24 Hours: Microbiology 07/02/20 20:37 Blood Blood Culture - Preliminary 07/03/20 23:40 Sputum - Expectorated Sputum Gram Stain - Final 07/02/20 20:37 Blood Blood Culture - Preliminary 07/02/20 20:37 Urine,Catheterized Urine Culture - Preliminary - Constitutional no acute distress, morbidly obese - *Routine Respiratory Exam Present: CTA bilaterally - *Routine Cardiovascular Exam Present: RRR - *Routine Extremities Exam Present: edema. Absent: cyanosis, clubbing Progress Note: A&P (1) Respiratory failure with hypercapnia Status: Acute (2) Pneumonia Status: Acute (3) Congestive heart failure Status: Acute (4) A-fib Status: Acute (5) Diabetes mellitus Status: Acute (6) JOB (obstructive sleep apnea) Status: Acute (7) Obesity Status: Acute (8) Obesity hypoventilation syndrome Status: Acute (9) Hypertension Status: Acute (10) Anemia Status: Acute Assessment and Plan for All Diagnoses:: 1. Congestive heart failure with net negative output of 5 L yesterday after IV Lasix. Echocardiogram was technically difficult study but EF estimated about 50% with moderate left atrial enlargement and mild MR. Continue lasix and spironolactone while monitoring renal status. Borderline low potassium, will supplement. 2. Hypercapnic respiratory failure, defer pulmonary 3. Pneumonia, on antibiotic therapy 4. Diabetes mellitus, per PCP 5. Morbidly obese 6. Hypertension, improved but not to goal. 7. Atrial fibrillation with controlled ventricular response. Patient on Eliquis therapy.
--- NOTE | 2020-07-04 10:31 | HMH.PULMPN ---
Internal Medicine - PN: Subj *Date: 07/04/20 *Time: 12:58 Interval history: No acute respiratory events overnight. He admits his respiratory status improved but not at baseline Exam - Constitutional Constitutional:: no acute distress, comfortable - HENMT Exam HENMT: cushingoid faces - Eye Exam Eyes:: eyelids normal, normal conjunctiva - Neck Exam Neck:: normal visual inspection - Respiratory Exam Respiratory:: able to speak in complete sentences, bibailar crackels heard - Cardiovascular Exam Cardiac:: S1, S2 - GI Exam GI:: soft, obese - Skin Exam Skin: warm - Neurological Exam Neurological: alert, awake, normal cognition - Extremities Exam Extremities: no cyanosis, no clubbing, edema - Psychiatric Exam Psychiatric: normal affect Assessment and Plan (1) Respiratory failure with hypercapnia Status: Acute Qualifiers: Chronicity: acute on chronic Qualified Code(s): J96.22 - Acute and chronic respiratory failure with hypercapnia Category: Medical Code(s): J96.92 - Respiratory failure, unspecified with hypercapnia (2) Pneumonia Status: Acute Category: Medical Code(s): J18.9 - Pneumonia, unspecified organism (3) Congestive heart failure Status: Acute Qualifiers: Heart failure type: unspecified Heart failure chronicity: acute on chronic Qualified Code(s): I50.9 - Heart failure, unspecified Category: Medical Code(s): I50.9 - Heart failure, unspecified (4) A-fib Status: Acute Qualifiers: Atrial fibrillation type: longstanding persistent Qualified Code(s): I48.11 - Longstanding persistent atrial fibrillation Category: Medical Code(s): I48.91 - Unspecified atrial fibrillation (5) Diabetes mellitus Status: Acute Qualifiers: Diabetes mellitus type: type 2 Diabetes mellitus exterminator helper insulin use: unspecified exterminator helper insulin use status Diabetes mellitus complication status: with other specified complication Qualified Code(s): E11.69 - Type 2 diabetes mellitus with other specified complication Category: Medical Code(s): E11.9 - Type 2 diabetes mellitus without complications (6) JOB (obstructive sleep apnea) Status: Acute Category: Medical Code(s): G47.33 - Obstructive sleep apnea (adult) (pediatric) (7) Obesity Status: Acute Qualifiers: Obesity type: due to excess calories Obesity classification: adult class 3 (BMI >= 40) Serious obesity comorbidity presence: with serious comorbidity Body mass index: BMI 50.0-59.9 Qualified Code(s): E66.01 - Morbid (severe) obesity due to excess calories; Z68.43 - Body mass index [BMI] 50.0-59.9, adult Category: Medical Code(s): E66.9 - Obesity, unspecified (8) Obesity hypoventilation syndrome Status: Acute Category: Medical Code(s): E66.2 - Morbid (severe) obesity with alveolar hypoventilation (9) Hypertension Status: Acute Category: Medical Code(s): I10 - Essential (primary) hypertension (10) Anemia Status: Acute Category: Medical Code(s): D64.9 - Anemia, unspecified - Assessment and plan all Dx Assessment and Plan for all problems:: #Hypoxic respiratory failure: #COPD exacerbation: #CHF exacerbation: 69-year-old history of COPD, CHF presented with worsening respiratory failure not associated with any fevers chills or productive phlegm. Afebrile on admission. Chest x-ray showed cardiomegaly evidence of volume overload, concerning right layering pleural effusion along with left lower lobe pulmonary infiltrate. BNP on admission elevated at 3400. Etiology likely a combination of COPD and CHF exacerbation, patient stated on antibiotics and diuresis protocol. Patient respiratory remained slightly improved from yesterday. Net negative 4 L yesterday. Leukocytosis stable at 12. Renal function stable with creatinine 1.10. Hemodynamically stable. Plan: - Continue ceftriaxone azithromycin for possible community-acquired pneumonia. - Follow wit
--- NOTE | 2020-07-04 10:49 | HMH.ACPN2 ---
Internal Medicine - PN: Subj *Date: 07/04/20 *Time: 14:03 Interval history: 69-year-old male patient lying in bed resting quietly. He reports he does feel better, less shortness of breath but still not his usual. Oxygen saturation 95% on 2 L per nasal cannula. Instructed him to be up out of bed for all meals and ambulating to bathroom Exam Vital signs and Labs for Last 24 Hours: Temp Pulse Resp BP Pulse Ox 97.7 F 77 20 161/91 H 95 07/04/20 08:00 07/04/20 08:00 07/04/20 08:00 07/04/20 08:00 07/04/20 08:00 Laboratory Results - last 24 hr 07/02/20 20:37: Urine Color Yellow, Urine Appearance Clear, Urine pH 7.0, Ur Specific [place] 1.025, Urine Protein 3+, Urine Glucose (UA) Trace, Urine Ketones Negative, Urine Blood 2+, Urine Nitrate Positive, Urine Bilirubin Negative, Urine Urobilinogen 2.0, Ur Leukocyte Esterase Negative, Urine RBC 20-50, Urine WBC 20-50, Amorphous Sediment Trace, Urine Bacteria Trace, Urine Mucus Trace 07/03/20 16:06: POC Glucose 283 H 07/03/20 20:22: POC Glucose 203 H 07/04/20 05:33: POC Glucose 198 H 07/04/20 06:35: WBC 12.4 H, RBC 4.58 L, Hgb 12.4 L, Hct 37.2 L, MCV 81.3, MCH 27.1, MCHC 33.3, RDW 16.8, Plt Count 157, MPV 8.6, Neut % (Auto) 79.3, Lymph % (Auto) 14.6, [place] % (Auto) 5.4, Eos % (Auto) 0.4, Baso % (Auto) 0.3, Neut # (Auto) 9.8 H, Lymph # (Auto) 1.8, [place] # (Auto) 0.7, Eos # (Auto) 0.1, Baso # (Auto) 0.0 07/04/20 06:35: Sodium 142, Potassium 3.5, Chloride 102, Carbon Dioxide 37 H, Anion Gap 6.5, BUN 25 H D, Creatinine 1.10, Estimated Creat Clear 153, Estimated GFR 66, Est GFR ( Amer) 80, Glucose 193 H, Calcium 9.1 I & O for Last 24 hours: Intake & Output 07/01/20 07/02/20 07/03/20 07/04/20 23:59 23:59 23:59 23:59 Intake Total 1979 360 / 360 Output Total 6850 / 6850 380 / 380 Balance -4870 / -4870 -20 / -20 Weight 375 lb 379 lb 3.121 oz 376 lb 15.847 oz Microbiology Reports for the Last 24 Hours: Microbiology 07/02/20 20:37 Urine,Catheterized Urine Culture - Preliminary Gram Negative Rods 07/02/20 20:37 Blood Blood Culture - Preliminary 07/03/20 23:40 Sputum - Expectorated Sputum Gram Stain - Final 07/02/20 20:37 Blood Blood Culture - Preliminary - Constitutional no acute distress, morbidly obese - *Routine HEENT Exam Head: Present: normocephalic Eye: Present: EOMI ENT: Present: mucous membranes moist - *Routine Neck Exam Present: trachea midline. Absent: tracheal deviation - *Routine Respiratory Exam Present: CTA bilaterally. Absent: accessory muscle use - *Routine Cardiovascular Exam Present: RRR. Absent: bradycardia - *Routine Abdominal Exam Present: soft, normoactive bowel sounds, obese. Absent: tenderness, firm - *Routine Extremities Exam Present: full ROM, pulses intact. Absent: cyanosis, clubbing, calf tenderness - *Routine Skin Exam Present: intact, dry, warm. Absent: cyanosis, erythema - *Routine Neurological Exam Present: alert, oriented X3, moving all extremities. Absent: altered mental status - Routine Psychiatric Exam Present: normal affect, normal thought process. Absent: auditory hallucinations, visual hallucinations Assessment and Plan (1) Respiratory failure with hypercapnia Status: Acute Qualifiers: Chronicity: acute on chronic Qualified Code(s): J96.22 - Acute and chronic respiratory failure with hypercapnia Category: Medical Code(s): J96.92 - Respiratory failure, unspecified with hypercapnia (2) Pneumonia Status: Acute Category: Medical Code(s): J18.9 - Pneumonia, unspecified organism (3) Congestive heart failure Status: Acute Qualifiers: Heart failure type: unspecified Heart failure chronicity: acute on chronic Qualified Code(s): I50.9 - Heart failure, unspecified Category: Medical Code(s): I50.9 - Heart failure, unspecified (4) A-fib Status: Acute Qualifiers: Atrial fibrillation type: longsta
[2020-07-04 11:18] LABS: POC Glucose,Bedside 291 (70-110)
--- NOTE | 2020-07-04 11:55 | HMH.PTEV ---
Physical Therapy Evaluation Rehab PT IP Evaluation Start: 07/04/20 10:53 Freq: .once Status: Active Protocol: Document 07/04/20 11:52 HELGA (Rec: 07/04/20 11:55 PHORADONIS [id number]) Subjective/History History History 69 yowm adm to [facility] with CHF exac and PNA. He reports he lives with daughter and uses a motorized w/c for all mobility at baseline. Subjective Subjective Pt with no c/o this am. Rehab PT IP Eval Objective Appearance Patient Behavior Appropriate Patient Orientation Person,Place,Time Difficulty following instructions none Speech Pattern Clear Ambulation Patient Able to Ambulate No Balance Ability to Arise Able, uses arms to help Sitting Balance Steady, safe Standing Balance Steady, wide stance Dynamic Sitting Balance Ability Good Dynamic Standing Balance Ability Fair Transfers Bed Transfer Ability Supervision/Stand by Chair Transfer Ability Supervision/Stand by Sit to Stand Bed Transfer Ability Supervision/Stand by Sit to Stand Chair Transfer Ability Supervision/Stand by ROM All Extremities PT ROM Status WFL MMT All Extremities PT MMT WFL Rehab PT IP prob,goals,plan Problems Date of Evaluation: 07/04/20 Discharge Plan PT Discharge Plan Pt appears to be at baseline for all transfers and mobility at this time and has no inpatient therapy needs currently. He would benefit from a BSC for home use nad possibly HHPT. G -code Required No Eval Complexity Eval Charge Codes 77317 - Moderate Complexity PHYSICIAN CERTIFICATION: I certify the specified therapy services for Michael Grimaldo are required, authorized, and reviewed every 30 days.
--- NOTE | 2020-07-04 12:33 | PC.NURSE ---
tried calling son of patient to pick her up. no answer. have tried multiple times. will keep trying
--- NOTE | 2020-07-04 12:52 | PC.NURSE ---
pt will need a bedside commode r/t gait/mobility issues and distance to and from bathroom at home.
--- NOTE | 2020-07-04 13:10 | SW/DCPLANNER ---
Addendum entered by [facility] 07/06/20 11:09: Martha with [facility] has reviewed patient information and stated that services will begin for this patient. Addendum entered by [facility] 07/06/20 10:48: [facility] can not services this patient due to not having nursing in [facility]. Patient information has now been faxed to [facility]. I will follow up with Martha once patient information is reviewed. Addendum entered by [facility] 07/06/20 10:19: Aixa with [facility] called back and stated they can not offer nursing services at this time. Patient information has now been faxed to Moose with [facility]. Addendum entered by [facility] 07/06/20 09:32: Patient will discharge home today. I have notified [facility] regarding delivery of O2 (delivered yesterday) and they will deliver BSC today. I will also fax patient information/order to [facility] today. I will follow up with [facility] once patient information is reviewed. Addendum entered by [facility] 07/04/20 13:15: [facility] Law has stated that DME will be delivered to patients room later today or tomorrow. Patient may discharge home tomorrow pending no setbacks. Original Note: I have spoke to this patient regarding discharge plans. Patient stated that he resides at home and anticipates discharging home once ready. Patient has a CPap at home. Patient does qualify for home O2: RA 87%. Patient also stated that he needs a bedside commode at home. Patient information and order has been faxed to [facility] for home O2/portable/bedside commode. Patient is also agreeable to home health services at discharge and prefers [facility]. I will set patient up with home health at time of discharge.
--- NOTE | 2020-07-04 15:22 | PC.NURSE ---
NO CHANGES NOTED FROM PREVIOUS ASSESSMENT. PATIENT HAS BEEN A/0X4 TODAY. HAS SAT UP TO CHAIR MOST OF THE DAY. HURTADO IN PLACE. WILL REMOVED WHEN PATIENT GETS BACK IN BED. ROUGH SCALY SKIN NOTED TO BLE. 2+ PITTING EDEMA TO BLE. PULSES 1+ HARD TO PALPATE. SCABBED AND REDDENED AREAS TO RIGHT ABD. NO BM THIS SHIFT. LUNGS DIMINISHED, AND PATIENT REPORTS A COUGH WITH THIN WHITE MUCUS. NO SOA OR DISTRESS NOTED. ON OXYGEN 2L PER NC. CALL LIGHT WITHIN REACH
[2020-07-04 16:37] LABS: POC Glucose,Bedside 273 (70-110)
[2020-07-04 22:14] LABS: POC Glucose,Bedside 170 (70-110)
[2020-07-05] VITALS (15 sets, daily range): BP systolic 143–175; BP diastolic 59–98; PULSE 54–90; RESP 18–23; TEMP 36.4–36.8; O2SAT 97–100; BMI 61.0
--- NOTE | 2020-07-05 06:23 | PC.NURSE ---
Pt is A&Ox4. Pt has rested well this shift. Lung sounds remain CTA. Pt tolerated bipap while sleeping appropriately. +2 pitting edema at BLE. Non-pitting edema at bilat hands. Active bowel sounds in all 4 quads. No BM reported this shift. No other acute changes or complaints at this time.
[2020-07-05 06:48] LABS: POC Glucose,Bedside 174 (70-110)
[2020-07-05 07:04] LABS: Basophils % 0.3 % (0.1-2.0); Eosinophils # 0.1 K/mm3 (0.0-0.4); Eosinophils % 1.3 % (0.1-12.0); Hematocrit 35.5 % (42.0-52.0); Hemoglobin 11.7 g/dL (14.1-18.0); Lymphocytes # 1.7 K/mm3 (0.7-4.5); Lymphocytes % 18.7 % (10-50); Mean Corpuscular HGB Conc 32.9 g/dL (31.8-35.4); Mean Corpuscular Volume 82.1 fl (80-94); Mean Platelet Volume 9.3 fl (7.4-10.4); Monocytes # 0.7 K/mm3 (0.1-1.0); Monocytes % 7.2 % (1.7-9.3); Neutrophils # 6.8 K/mm3 (1.8-7.8); Neutrophils % 72.6 % (37.0-80.0); Platelet Count 126 K/mm3 (142-424); Red Blood Count 4.33 M/mm3 (4.60-6.20); Red Cell Distribution Width 16.7 % (11.5-17.5); White Blood Count 9.4 K/mm3 (4.8-10.8)
[2020-07-05 07:10] LABS: Anion Gap 6.1 mEq/L (5-15); Blood Urea Nitrogen 27 mg/dl (9-20); Calcium 8.9 mg/dl (8.4-10.2); Carbon Dioxide 37 mmol/L (22.0-30.0); Chloride 102 mmol/L (98-107); Creatinine Clearance Estimated 57 mL/min (50-200); Estimated Glomerular Filt Rate 66 ml/min (>60); GFR (African American) 80 ML/MIN (>60); Glucose 194 mg/dl (74-100); Potassium 4.1 mmoL/L (3.5-5.1); Sodium 141 mmol/L (136-145)
--- NOTE | 2020-07-05 09:20 | HMH.PNCARD ---
Subjective Date: 07/05/20 Time: 09:20 Principal diagnosis: CHF, COPD exacerbation Interval history: 69-year-old white male in bed in no acute distress. Oxygen by nasal cannula. He denies any significant chest pain or shortness of breath above baseline. Blood cultures positive with final ID pending. Exam Vital signs and Labs for Last 24 Hours: Temp Pulse Resp BP Pulse Ox 98.3 F 67 20 143/59 H 99 07/05/20 08:00 07/05/20 08:00 07/05/20 08:00 07/05/20 08:00 07/05/20 08:00 Laboratory Results - last 24 hr 07/02/20 20:37: Urine Color Yellow, Urine Appearance Clear, Urine pH 7.0, Ur Specific [place] 1.025, Urine Protein 3+, Urine Glucose (UA) Trace, Urine Ketones Negative, Urine Blood 2+, Urine Nitrate Positive, Urine Bilirubin Negative, Urine Urobilinogen 2.0, Ur Leukocyte Esterase Negative, Urine RBC 20-50, Urine WBC 20-50, Amorphous Sediment Trace, Urine Bacteria Trace, Urine Mucus Trace 07/04/20 11:11: POC Glucose 291 H 07/04/20 16:30: POC Glucose 273 H 07/04/20 22:00: POC Glucose 170 H 07/05/20 06:34: WBC 9.4, RBC 4.33 L, Hgb 11.7 L, Hct 35.5 L, MCV 82.1, MCH 27.0, MCHC 32.9, RDW 16.7, Plt Count 126 L, MPV 9.3, Neut % (Auto) 72.6, Lymph % (Auto) 18.7, [place] % (Auto) 7.2, Eos % (Auto) 1.3, Baso % (Auto) 0.3, Neut # (Auto) 6.8, Lymph # (Auto) 1.7, [place] # (Auto) 0.7, Eos # (Auto) 0.1, Baso # (Auto) 0.0 07/05/20 06:34: Sodium 141, Potassium 4.1, Chloride 102, Carbon Dioxide 37 H, Anion Gap 6.1, BUN 27 H, Creatinine 1.10, Estimated Creat Clear 57, Estimated GFR 66, Est GFR ( Amer) 80, Glucose 194 H, Calcium 8.9 07/05/20 06:38: POC Glucose 174 H I & O for Last 24 hours: Intake & Output 07/02/20 07/03/20 07/04/20 07/05/20 11:59 11:59 11:59 11:59 Intake Total 1140 / 1140 1200 / 1200 3881 / 3881 Output Total 6150 / 6150 1080 / 1080 2250 / 2250 Balance -5010 / -5010 120 / 120 1631 / 1631 Weight 379 lb 3.121 oz 376 lb 15.847 oz 379 lb 10.176 oz Microbiology Reports for the Last 24 Hours: Microbiology 07/02/20 20:37 Blood Blood Culture - Preliminary Gram Positive Cocci 07/02/20 20:37 Blood Blood Culture - Preliminary Gram Positive Cocci 07/03/20 23:40 Sputum - Expectorated Sputum Gram Stain - Final 07/03/20 23:40 Sputum - Expectorated Sputum Sputum Culture - Preliminary 07/02/20 20:37 Urine,Catheterized Urine Culture - Final Enterobacter aerogenes - Constitutional no acute distress, morbidly obese - *Routine Respiratory Exam Present: CTA bilaterally - *Routine Cardiovascular Exam Present: RRR - *Routine Extremities Exam Present: edema. Absent: cyanosis, clubbing - *Routine Neurological Exam Present: alert, oriented X3 Progress Note: A&P (1) Respiratory failure with hypercapnia Status: Acute (2) Pneumonia Status: Acute (3) A-fib Status: Acute Assessment and plan: Rate controlled on carvedilol therapy. Patient is on Eliquis therapy as well. (4) Diabetes mellitus Status: Acute (5) JOB (obstructive sleep apnea) Status: Acute (6) Obesity Status: Acute (7) Obesity hypoventilation syndrome Status: Acute (8) Hypertension Status: Acute (9) Anemia Status: Acute (10) Acute on chronic diastolic CHF (congestive heart failure) Status: Acute Assessment and plan: Clinically stable with BUN slightly elevated on current dose of Lasix and spironolactone. No changes at this time. Assessment and Plan for All Diagnoses:: Cardiac status stable on current medical regimen. Nothing further to add at this time. Please call if needed.
--- NOTE | 2020-07-05 09:39 | HMH.ACPN2 ---
Internal Medicine - PN: Subj *Date: 07/05/20 *Time: 11:41 Interval history: 69-year-old male patient lying in bed he reports he is feeling better no respiratory distress noted. Oxygen saturations 98% on 2 L per nasal cannula, he does report he tolerated his CPAP all night and is rested this morning. Explained to him that he will be in the hospital until sensitivity test are resulted, he verbalizes understanding. Pulmonology has seen and recommends: Plan: - Continue ceftriaxone azithromycin for possible community-acquired pneumonia. - Follow with sputum cultures - DuoNebs every 6 hours and budesonide every 12 hours scheduled - Follow with cardiology for diuresis and volume optimization - Incentive spirometry Exam Vital signs and Labs for Last 24 Hours: Temp Pulse Resp BP Pulse Ox 98.3 F 67 20 143/59 H 99 07/05/20 08:00 07/05/20 08:00 07/05/20 08:00 07/05/20 08:00 07/05/20 08:00 Laboratory Results - last 24 hr 07/02/20 20:37: Urine Color Yellow, Urine Appearance Clear, Urine pH 7.0, Ur Specific Broussard 1.025, Urine Protein 3+, Urine Glucose (UA) Trace, Urine Ketones Negative, Urine Blood 2+, Urine Nitrate Positive, Urine Bilirubin Negative, Urine Urobilinogen 2.0, Ur Leukocyte Esterase Negative, Urine RBC 20-50, Urine WBC 20-50, Amorphous Sediment Trace, Urine Bacteria Trace, Urine Mucus Trace 07/04/20 11:11: POC Glucose 291 H 07/04/20 16:30: POC Glucose 273 H 07/04/20 22:00: POC Glucose 170 H 07/05/20 06:34: WBC 9.4, RBC 4.33 L, Hgb 11.7 L, Hct 35.5 L, MCV 82.1, MCH 27.0, MCHC 32.9, RDW 16.7, Plt Count 126 L, MPV 9.3, Neut % (Auto) 72.6, Lymph % (Auto) 18.7, [place] % (Auto) 7.2, Eos % (Auto) 1.3, Baso % (Auto) 0.3, Neut # (Auto) 6.8, Lymph # (Auto) 1.7, [place] # (Auto) 0.7, Eos # (Auto) 0.1, Baso # (Auto) 0.0 07/05/20 06:34: Sodium 141, Potassium 4.1, Chloride 102, Carbon Dioxide 37 H, Anion Gap 6.1, BUN 27 H, Creatinine 1.10, Estimated Creat Clear 57, Estimated GFR 66, Est GFR ( Amer) 80, Glucose 194 H, Calcium 8.9 07/05/20 06:38: POC Glucose 174 H I & O for Last 24 hours: Intake & Output 07/02/20 07/03/20 07/04/20 07/05/20 23:59 23:59 23:59 23:59 Intake Total 1979 / 1979 1080 / 1080 3161 / 3161 Output Total 6850 / 6850 2630 / 2630 Balance -4870 / -4870 -1550 / -1550 3161 / 3161 Weight 375 lb 379 lb 3.121 oz 376 lb 15.847 oz 379 lb 10.176 oz Microbiology Reports for the Last 24 Hours: Microbiology 07/02/20 20:37 Blood Blood Culture - Preliminary Gram Positive Cocci 07/02/20 20:37 Blood Blood Culture - Preliminary Gram Positive Cocci 07/03/20 23:40 Sputum - Expectorated Sputum Gram Stain - Final 07/03/20 23:40 Sputum - Expectorated Sputum Sputum Culture - Preliminary 07/02/20 20:37 Urine,Catheterized Urine Culture - Final Enterobacter aerogenes - Constitutional morbidly obese - *Routine HEENT Exam Head: Present: normocephalic Eye: Present: EOMI ENT: Present: mucous membranes moist - *Routine Neck Exam Present: trachea midline. Absent: tracheal deviation - *Routine Respiratory Exam Present: CTA bilaterally. Absent: accessory muscle use - *Routine Cardiovascular Exam Present: RRR. Absent: bradycardia - *Routine Abdominal Exam Present: soft, normoactive bowel sounds, obese. Absent: tenderness, firm - *Routine Extremities Exam Present: edema, full ROM, pulses intact. Absent: cyanosis, calf tenderness - *Routine Skin Exam Present: intact, dry, warm. Absent: cyanosis, erythema - *Routine Neurological Exam Present: alert, oriented X3, normal reflexes. Absent: altered mental status - Routine Psychiatric Exam Present: normal affect, normal thought process, cooperative. Absent: visual hallucinations, unable to assess Assessment and Plan (1) Respiratory failure with hypercapnia Status: Acute Qualifiers: Chronicity: acute on chronic Qualified Co
[2020-07-05 11:17] LABS: POC Glucose,Bedside 307 (70-110)
--- NOTE | 2020-07-05 13:09 | HMH.PULMPN ---
Internal Medicine - PN: Subj *Date: 07/05/20 *Time: 13:09 Interval history: No acute respirations overnight. Patient oxygen supplementation weaned down to 1 L this morning. Exam - Constitutional Constitutional:: no acute distress, comfortable - HENMT Exam HENMT: atraumatic - Neck Exam Neck:: normal visual inspection - Respiratory Exam Respiratory:: able to speak in complete sentences, bibailar crackels heard - GI Exam GI:: soft, obese - Neurological Exam Neurological: alert, awake, normal cognition - Extremities Exam Extremities: no cyanosis, no clubbing, edema Assessment and Plan (1) Respiratory failure with hypercapnia Status: Acute Qualifiers: Chronicity: acute on chronic Qualified Code(s): J96.22 - Acute and chronic respiratory failure with hypercapnia Category: Medical Code(s): J96.92 - Respiratory failure, unspecified with hypercapnia (2) Pneumonia Status: Acute Category: Medical Code(s): J18.9 - Pneumonia, unspecified organism (3) A-fib Status: Acute Qualifiers: Atrial fibrillation type: longstanding persistent Qualified Code(s): I48.11 - Longstanding persistent atrial fibrillation Category: Medical Code(s): I48.91 - Unspecified atrial fibrillation (4) Diabetes mellitus Status: Acute Qualifiers: Diabetes mellitus type: type 2 Diabetes mellitus care home insulin use: unspecified care home insulin use status Diabetes mellitus complication status: with other specified complication Qualified Code(s): E11.69 - Type 2 diabetes mellitus with other specified complication Category: Medical Code(s): E11.9 - Type 2 diabetes mellitus without complications (5) JOB (obstructive sleep apnea) Status: Acute Category: Medical Code(s): G47.33 - Obstructive sleep apnea (adult) (pediatric) (6) Obesity Status: Acute Qualifiers: Obesity type: due to excess calories Obesity classification: adult class 3 (BMI >= 40) Serious obesity comorbidity presence: with serious comorbidity Body mass index: BMI 50.0-59.9 Qualified Code(s): E66.01 - Morbid (severe) obesity due to excess calories; Z68.43 - Body mass index [BMI] 50.0-59.9, adult Category: Medical Code(s): E66.9 - Obesity, unspecified (7) Obesity hypoventilation syndrome Status: Acute Category: Medical Code(s): E66.2 - Morbid (severe) obesity with alveolar hypoventilation (8) Hypertension Status: Acute Category: Medical Code(s): I10 - Essential (primary) hypertension (9) Anemia Status: Acute Category: Medical Code(s): D64.9 - Anemia, unspecified (10) Acute on chronic diastolic CHF (congestive heart failure) Status: Acute Category: Medical Code(s): I50.33 - Acute on chronic diastolic (congestive) heart failure (11) Bacteremia Status: Acute Category: Medical Code(s): R78.81 - Bacteremia - Assessment and plan all Dx Assessment and Plan for all problems:: #Hypoxic respiratory failure: #COPD exacerbation: #CHF exacerbation: 69-year-old history of COPD, CHF presented with worsening respiratory failure not associated with any fevers chills or productive phlegm. Afebrile on admission. Chest x-ray showed cardiomegaly evidence of volume overload, concerning right layering pleural effusion along with left lower lobe pulmonary infiltrate. BNP on admission elevated at 3400. Etiology likely a combination of COPD and CHF exacerbation, patient stated on antibiotics and diuresis protocol. Patient respiratory status improved with antibiotics and diuresis, weaned to 1 L nasal cannula this morning. Saturating 95%. WBC normalized at 9.4. Creatinine stable at 1.2. Net -1.5 L yesterday. Blood culture growing gram-positive cocci likely Staphylococcus. Urine culture grew Enterobacter aerogenes sensitive to ceftriaxone Plan: -Blood cultures growing Staphylococcus and sputum prelim stain showing many gram-positive diplococci. Patient initiated on vancomycin. - Jovita
[2020-07-05 16:58] LABS: POC Glucose,Bedside 253 (70-110)
--- NOTE | 2020-07-05 19:00 | PC.NURSE ---
A&OX4. PT HAS TOLERATED 2L NC WELL THROUGHOUT SHIFT. RESPIRATIONS REGULAR AND UNLABORED. LUNG SOUNDS BILATERALLY CLEAR. NO COUGH NOTED. HAND ORAL AND MAXILLOFACIAL SURGERY RESIDENT EQAUL. +2 PULSES NOTED THROUGHOUT. NONPITTING EDEMA NOTED TO BILATERAL HANDS. +1 PITTING EDEMA NOTED TO BLE. OPEN SKIN LESIONS NOTED TO ABDOMEN. DRY, SCALY SKIN NOTED TO BLE. NO PAIN REPORTED THIS SHIFT. PT REPORTED NAUSEA ONCE AND RECEIVED ZOFRAN. ON REASSESSMENT, PT STATED NAUSEA HAD EASED. ACTIVE BOWEL SOUNDS HEARD IN ALL 4 QUADRANTS. SOFT AND NONTENDER ABDOMEN. NO BM REPORTED. PT VOIDS PER URINAL. CLEAR YELLOW URINE NOTED. PT WAS UP TO THE CHAIR MOST OF THE AFTERNOON. PT RECEIVED SEVERAL ANTIBIOTICS AND TOLERATED WELL. BED IN LOWEST POSITION. CALL LIGHT WITHIN REACH. VSS. WILL CONTINUE TO MONITOR.
[2020-07-05 20:01] LABS: POC Glucose,Bedside 236 (70-110)
[2020-07-06] VITALS (9 sets, daily range): BP systolic 132–169; BP diastolic 72–86; PULSE 53–71; RESP 18–20; TEMP 36.4–36.9; O2SAT 98–100; BMI 61.5
[2020-07-06 05:21] LABS: Basophils % 0.4 % (0.1-2.0); Eosinophils # 0.1 K/mm3 (0.0-0.4); Eosinophils % 1.1 % (0.1-12.0); Hematocrit 36.1 % (42.0-52.0); Hemoglobin 11.7 g/dL (14.1-18.0); Lymphocytes # 1.3 K/mm3 (0.7-4.5); Lymphocytes % 15.3 % (10-50); Mean Corpuscular HGB Conc 32.4 g/dL (31.8-35.4); Mean Corpuscular Hemoglobin 26.4 pg (27.0-31.2); Mean Corpuscular Volume 81.6 fl (80-94); Mean Platelet Volume 9.1 fl (7.4-10.4); Monocytes # 0.5 K/mm3 (0.1-1.0); Monocytes % 5.8 % (1.7-9.3); Neutrophils # 6.5 K/mm3 (1.8-7.8); Neutrophils % 77.4 % (37.0-80.0); Platelet Count 128 K/mm3 (142-424); Red Blood Count 4.42 M/mm3 (4.60-6.20); Red Cell Distribution Width 16.4 % (11.5-17.5); White Blood Count 8.4 K/mm3 (4.8-10.8)
--- NOTE | 2020-07-06 05:30 | PC.NURSE ---
pt slide out of bed tonight. was notified. pt reports no injuries or pain and no injuries are noted. vss. bipap worn throughout night. iv patent and infusing per order. pt is alert and oriented. no acute changes. call light in reach. reminded to use call light. will continue to monitor pt condition.
[2020-07-06 05:34] LABS: Anion Gap 7.4 mEq/L (5-15); Blood Urea Nitrogen 23 mg/dl (9-20); Calcium 8.8 mg/dl (8.4-10.2); Carbon Dioxide 36 mmol/L (22.0-30.0); Chloride 103 mmol/L (98-107); Creatinine Clearance Estimated 63 mL/min (50-200); Estimated Glomerular Filt Rate 74 ml/min (>60); GFR (African American) 90 ML/MIN (>60); Glucose 191 mg/dl (74-100); Potassium 4.4 mmoL/L (3.5-5.1); Sodium 142 mmol/L (136-145)
[2020-07-06 05:41] LABS: Vancomycin,Trough 18.6 ug/mL (5.0-10.0)
[2020-07-06 05:58] LABS: POC Glucose,Bedside 181 (70-110)
--- NOTE | 2020-07-06 06:49 | PC.NURSE ---
0600 [address] Round TRASH EMPTIED AND WATER REFILLED
--- NOTE | 2020-07-06 08:50 | HMH.PHACONS ---
- Pharmacy Consult Date: 07/06/20 Time: 08:50 Referring provider: DR. SCHRADER Reason for Consult:: VANCOMYCIN TROUGH LEVEL Allergies and ADEs:: Allergies Allergy/AdvReac Type Severity Reaction Status Date / Time No Known Allergies Allergy Verified 07/02/20 20:44 Home Medications:: Home Medications Medication Instructions Recorded Confirmed Type Apixaban [Eliquis] 5 mg PO BID 07/02/20 07/03/20 History Aspirin [Aspirin 81mg chewable 81 mg PO DAILY 07/02/20 07/02/20 History tab] Fosinopril Sodium 40 mg PO DAILY 07/02/20 07/02/20 History Metformin HCl [Metformin 1000mg 1,000 mg PO BIDWM 07/02/20 07/03/20 History Tablets] Sertraline HCl [Zoloft 50mg tablet] 50 mg PO DAILY 07/02/20 07/02/20 History allopurinoL [Zyloprim] 300 mg PO DAILY 07/02/20 07/02/20 History carvediloL [Carvedilol 25mg Tab] 25 mg PO BID 07/03/20 07/03/20 History glipiZIDE [Glucotrol 5mg tablet] 10 mg PO BID 07/03/20 07/03/20 History hydroCHLOROthiazide [HCTZ 25mg 25 mg PO DAILY 07/03/20 07/03/20 History tab] Height: 1.69 m Weight: 175.5 kg Laboratory Results:: Laboratory Results - last 24 hr 07/05/20 10:56: POC Glucose 307 H* 07/05/20 16:48: POC Glucose 253 H 07/05/20 19:46: POC Glucose 236 H 07/06/20 04:35: WBC 8.4, RBC 4.42 L, Hgb 11.7 L, Hct 36.1 L, MCV 81.6, MCH 26.4 L, MCHC 32.4, RDW 16.4, Plt Count 128 L, MPV 9.1, Neut % (Auto) 77.4, Lymph % (Auto) 15.3, [place] % (Auto) 5.8, Eos % (Auto) 1.1, Baso % (Auto) 0.4, Neut # (Auto) 6.5, Lymph # (Auto) 1.3, [place] # (Auto) 0.5, Eos # (Auto) 0.1, Baso # (Auto) 0.0 07/06/20 04:35: Sodium 142, Potassium 4.4, Chloride 103, Carbon Dioxide 36 H, Anion Gap 7.4, BUN 23 H, Creatinine 1.00, Estimated Creat Clear 63, Estimated GFR 74, Est GFR ( Amer) 90, Glucose 191 H, Calcium 8.8 07/06/20 04:35: Vancomycin Trough 18.6 H 07/06/20 05:47: POC Glucose 181 H Medical History: Reports:: Atrial Fibrillation, Congestive Heart Failure, Diabetes Mellitus Type 2, Hypertension, Peripheral Artery Disease Denies:: Cancer, Diabetes Mellitus Type 1, Internal Pacemaker Assessment and Plan (1) Respiratory failure with hypercapnia Status: Acute Qualifiers: Chronicity: acute on chronic Qualified Code(s): J96.22 - Acute and chronic respiratory failure with hypercapnia Category: Medical Code(s): J96.92 - Respiratory failure, unspecified with hypercapnia (2) Pneumonia Status: Acute Category: Medical Code(s): J18.9 - Pneumonia, unspecified organism (3) A-fib Status: Acute Qualifiers: Atrial fibrillation type: longstanding persistent Qualified Code(s): I48.11 - Longstanding persistent atrial fibrillation Category: Medical Code(s): I48.91 - Unspecified atrial fibrillation (4) Diabetes mellitus Status: Acute Qualifiers: Diabetes mellitus type: type 2 Diabetes mellitus jail insulin use: unspecified jail insulin use status Diabetes mellitus complication status: with other specified complication Qualified Code(s): E11.69 - Type 2 diabetes mellitus with other specified complication Category: Medical Code(s): E11.9 - Type 2 diabetes mellitus without complications (5) JOB (obstructive sleep apnea) Status: Acute Category: Medical Code(s): G47.33 - Obstructive sleep apnea (adult) (pediatric) (6) Obesity Status: Acute Qualifiers: Obesity type: due to excess calories Obesity classification: adult class 3 (BMI >= 40) Serious obesity comorbidity presence: with serious comorbidity Body mass index: BMI 50.0-59.9 Qualified Code(s): E66.01 - Morbid (severe) obesity due to excess calories; Z68.43 - Body mass index [BMI] 50.0-59.9, adult Category: Medical Code(s): E66.9 - Obesity, unspecified (7) Obesity hypoventilation syndrome Status: Acute Category: Medical Code(s): E66.2 - Morbid (severe) obesity with alveolar hypoventilation (8) Hypertension Status: Acute Category: Medical Code(s): I10 - Essential (primary
--- NOTE | 2020-07-06 08:53 | HMH.DCSUM ---
General - General Admission date:: 07/02/20 Discharge date: 07/06/20 HPI HPI: 69-year-old male presented to emergency department for acute shortness of breath while ambulating at home. History of COPD,diabetes and obstructive sleep apnea for which he uses BiPAP at night. Hx of chronic atrial fibrillation for which he takes Eliquis therapy. Chest x ray on admission states Right-sided pneumonia. Pt admitted for pneumonia and CHF, will consult cardiology and pulmonary. Hospital Course Hospital Course: 69-year-old male presented to emergency department for acute shortness of breath while ambulating at home. History of COPD,diabetes and obstructive sleep apnea for which he uses BiPAP at night. Hx of chronic atrial fibrillation for which he takes Eliquis therapy. Chest x ray on admission states Right-sided pneumonia. Pt admitted for pneumonia and CHF, will consult cardiology and pulmonary. Labs in ER revealed a white count of 21,000 H&H was stable, BNP 3400 chemistries unremarkable 07/03/20 CXR: FINDINGS: There is cardiomegaly. Diffuse consolidation involves the right upper and right lower lobe consistent with pneumonia. No acute bony abnormalities. IMPRESSION: Right-sided pneumonia Dictated by: Laci, 07/03/20 ECHO: Conclusion 1. Technically very difficult and poor study as described above, if clinically indicated repeat study with Definity contrast is recommended. Probably preserved left ventricular systolic function, visually estimated ejection fraction 50% as described above, diastolic parameters are inconclusive. 2. Moderately enlarged left atrium. 3. Mild mitral and tricuspid regurgitation. 4. Small pericardial effusion noted. Electronically signed by : Himanshu Griggs Cardiology has seen and rec: 1. Congestive heart failure with net negative output of 5 L yesterday after IV Lasix. Echocardiogram was technically difficult study but EF estimated about 50% with moderate left atrial enlargement and mild MR. Continue lasix and spironolactone while monitoring renal status. Borderline low potassium, will supplement. 2. Hypercapnic respiratory failure, defer pulmonary 3. Pneumonia, on antibiotic therapy 4. Diabetes mellitus, per PCP 5. Morbidly obese 6. Hypertension, improved but not to goal. 7. Atrial fibrillation with controlled ventricular response. Patient on Eliquis therapy. Pulmonolg seen and rec: Plan: -Blood cultures growing Staphylococcus and sputum prelim stain showing many gram-positive diplococci. Patient initiated on vancomycin. - Continue azithromycin for total of 5 days -Wean nasal cannula oxygen supplementation with O2 saturation goal of 88% to 92% - DuoNebs every 6 hours and budesonide every 12 hours scheduled - Follow with cardiology for diuresis and volume optimization - Incentive spirometry During his stay he has received vancomycin, azithromycin, and ceftriaxone IV Blood cultures reveal Staphylococcus epidermis, UA has grown Enterobacter [place] Cardiology was consulted for CHF, after diuresis patient has had no further problems. He has been on 2 L per nasal cannula and oxygen saturations have been greater than 94%, he has been using BiPAP at night with his current home settings. He has been afebrile for greater than 48 hours blood pressures have been stable. Leukocytosis has resolved, H/H stable, chemistries unremarkable 69-year-old male patient resting quietly in bed no respiratory distress noted, he reports he had a good night and is feeling better. Discussed discharge home today, he is agreement to this Plan: We will discharge home Cefdinir 300 mg twice daily x3 days Azithromycin 500 mg 1 time Home oxygen Follow-up with PCP in 2 weeks Objective Vital signs: Temp Pulse Resp BP Pulse Ox 98.1 F 65 20 154/85 H 98 07/06/20 08:00 07/06/20 08:00 07/06/20 08:00 07/06/20 08:00 07/06/20 08:00 no acute distress, obe
--- NOTE | 2020-07-06 11:44 | HMH.PULMPN ---
Internal Medicine - PN: Subj *Date: 07/06/20 *Time: 11:44 Interval history: No acute respiratory meds overnight. Patient respiratory status improved. Exam - Constitutional Constitutional:: no acute distress, comfortable - HENMT Exam HENMT: normocephalic, atraumatic - Eye Exam Eyes:: eyelids normal, normal conjunctiva - Neck Exam Neck:: thyroid normal - Respiratory Exam Respiratory:: able to speak in complete sentences, bibailar crackels heard - Cardiovascular Exam Cardiac:: S1, S2 - GI Exam GI:: soft, obese - Skin Exam Skin: warm, no rash - Neurological Exam Neurological: alert, awake, normal cognition - Extremities Exam Extremities: no cyanosis, no clubbing, edema Assessment and Plan (1) Respiratory failure with hypercapnia Status: Acute Qualifiers: Chronicity: acute on chronic Qualified Code(s): J96.22 - Acute and chronic respiratory failure with hypercapnia Category: Medical Code(s): J96.92 - Respiratory failure, unspecified with hypercapnia (2) Pneumonia Status: Acute Category: Medical Code(s): J18.9 - Pneumonia, unspecified organism (3) A-fib Status: Acute Qualifiers: Atrial fibrillation type: longstanding persistent Qualified Code(s): I48.11 - Longstanding persistent atrial fibrillation Category: Medical Code(s): I48.91 - Unspecified atrial fibrillation (4) Diabetes mellitus Status: Acute Qualifiers: Diabetes mellitus type: type 2 Diabetes mellitus long-term insulin use: unspecified intermediate school teacher insulin use status Diabetes mellitus complication status: with other specified complication Qualified Code(s): E11.69 - Type 2 diabetes mellitus with other specified complication Category: Medical Code(s): E11.9 - Type 2 diabetes mellitus without complications (5) JOB (obstructive sleep apnea) Status: Acute Category: Medical Code(s): G47.33 - Obstructive sleep apnea (adult) (pediatric) (6) Obesity Status: Acute Qualifiers: Obesity type: due to excess calories Obesity classification: adult class 3 (BMI >= 40) Serious obesity comorbidity presence: with serious comorbidity Body mass index: BMI 50.0-59.9 Qualified Code(s): E66.01 - Morbid (severe) obesity due to excess calories; Z68.43 - Body mass index [BMI] 50.0-59.9, adult Category: Medical Code(s): E66.9 - Obesity, unspecified (7) Obesity hypoventilation syndrome Status: Acute Category: Medical Code(s): E66.2 - Morbid (severe) obesity with alveolar hypoventilation (8) Hypertension Status: Acute Category: Medical Code(s): I10 - Essential (primary) hypertension (9) Anemia Status: Acute Category: Medical Code(s): D64.9 - Anemia, unspecified (10) Acute on chronic diastolic CHF (congestive heart failure) Status: Acute Category: Medical Code(s): I50.33 - Acute on chronic diastolic (congestive) heart failure (11) Bacteremia Status: Acute Category: Medical Code(s): R78.81 - Bacteremia (12) Bacteremia due to Staphylococcus epidermidis Status: Acute Category: Medical Code(s): R78.81 - Bacteremia; B95.7 - Other staphylococcus as the cause of diseases classified elsewhere - Assessment and plan all Dx Assessment and Plan for all problems:: #Hypoxic respiratory failure: #COPD exacerbation: #CHF exacerbation: 69-year-old history of COPD, CHF presented with worsening respiratory failure not associated with any fevers chills or productive phlegm. Afebrile on admission. Chest x-ray showed cardiomegaly evidence of volume overload, concerning right layering pleural effusion along with left lower lobe pulmonary infiltrate. BNP on admission elevated at 3400. Etiology likely a combination of COPD and CHF exacerbation, patient stated on antibiotics and diuresis protocol. Patient respiratory status improved with antibiotics and diuresis, weaned to 1 L nasal cannula this morning. Saturating 95%. WBC normalized at 9.4. Creatinine stable a
[2020-07-06 11:45] LABS: POC Glucose,Bedside 194 (70-110)
== END 2020-07-06 16:25 | disposition home health service (06) | DRG 189 ==
LOC: ER 22:34 → 2ND 22:34
PROVIDERS: Nurse Practitioner Family; Admitting Provider Emergency Medicine; Emergency Provider Emergency Medicine; PCP Family Medicine; Visit Provider Emergency Medicine
DX: J18.9 Pneumonia, unspecified organism (principal); J96.22 Acute and chronic respiratory failure with hypercapnia; I50.43 Acute on chronic combined systolic (congestive) and diastolic (congestive) heart failure; R78.81 Bacteremia; J44.1 Chronic obstructive pulmonary disease with (acute) exacerbation; I48.11 Longstanding persistent atrial fibrillation; E66.2 Morbid (severe) obesity with alveolar hypoventilation; Z68.43 Body mass index [BMI] 50.0-59.9, adult; I11.0 Hypertensive heart disease with heart failure; Z79.82 Long term (current) use of aspirin; E11.69 Type 2 diabetes mellitus with other specified complication; Z79.01 Long term (current) use of anticoagulants; Z79.84 Long term (current) use of oral hypoglycemic drugs
CPT/HCPCS: 36415; 71045; 80048; 80061; 80202; 81001; 82803; 82962; 83605; 83735; 83880; 84145; 84436; 84443; 84484; 85007; 85025; 86328; 87040; 87070; 87077; 87086; 87088; 87186; 87205; 87581; 87633; 87798; 93005; 93306; 94640; 94660; 94761; 96374; 97162; 97165; 99285; J2405; J3370

== ENCOUNTER 2024-08-12 11:35 | Emergency (ER) | payer MEDICARE, SELFPAY ==
[2024-08-12] VITALS (8 sets, daily range): BP systolic 134–180; BP diastolic 84–113; PULSE 58–81; RESP 16–20; TEMP 36.9; O2SAT 93–99; BMI 57.6
--- NOTE | 2024-08-12 11:40 | ECG_ITS ---
APPROVED REPORT Exam: Resting ECG HR:95 bpm ECG Measurements Heart Rate 95 AXES QRSd 78 QRS 95 QT 370 T 20 QTc 422 Conclusion ATRIAL FIBRILLATION BORDERLINE RIGHT AXIS DEVIATION [QRS AXIS > 90] LOW QRS VOLTAGE IN PRECORDIAL LEADS [QRS DEFLECTION < 1.0 mV IN CHEST LEADS] No STEMI Electronically signed by : TONYA STOVALL, 08/13/2024 07:10:37
--- NOTE | 2024-08-12 11:48 | XR_ITS ---
FINAL REPORT CLINICAL HISTORY: afib rvr, palpitations COMPARISON: None FINDINGS: There is abnormal density left lung base suspicious for a combination of pleural effusion with atelectasis and/or pneumonia. There is pulmonary vascular congestion. The heart is obscured by lung disease. The mediastinum is unremarkable. IMPRESSION: Left-sided pleural effusion with associated atelectasis and/or pneumonia. Reviewed, Interpreted and Dictated by Marga De La Rosa MD Transcribed by Sharon Swanson [facility]henticated and [facility]
[2024-08-12 11:56] LABS: Basophils # 0.1 K/mm3 (0-0.2); Basophils % 0.6 % (0.1-2.0); Eosinophils # 0.3 K/mm3 (0.0-0.4); Eosinophils % 2.7 % (0.1-12.0); Hematocrit 40.4 % (42.0-52.0); Hemoglobin 13.1 g/dL (14.1-18.0); Lymphocytes # 0.9 K/mm3 (0.7-4.5); Lymphocytes % 9.9 % (10-50); Mean Corpuscular HGB Conc 32.4 g/dL (31.8-35.4); Mean Corpuscular Hemoglobin 27.4 pg (27.0-31.2); Mean Corpuscular Volume 84.5 fl (80-94); Mean Platelet Volume 11.3 fl (7.4-10.4); Monocytes # 0.8 K/mm3 (0.1-1.0); Monocytes % 8.1 % (1.7-9.3); Neutrophils # 7.2 K/mm3 (1.8-7.8); Neutrophils % 76.4 % (37.0-80.0); Platelet Count 136 K/mm3 (142-424); Red Blood Count 4.78 M/mm3 (4.60-6.20); Red Cell Distribution Width 14.9 % (11.5-17.5); White Blood Count 9.4 K/mm3 (4.8-10.8)
[2024-08-12 12:04] LABS: Alanine Aminotransferase 26 U/L (12-78); Albumin Level 3.7 g/dl (3.5-5.0); Albumin/Globulin Ratio 1.5 (1.1-1.8); Alkaline Phosphatase 89 U/L (38-126); Anion Gap 8.6 mEq/L (5-15); Aspartate Amino Transferase 26 U/L (17-59); Bilirubin,Total 0.3 mg/dl (0.2-1.3); Blood Urea Nitrogen 30 mg/dl (9-20); Calcium 9.3 mg/dl (8.4-10.2); Carbon Dioxide 29 mmol/L (22.0-30.0); Chloride 105 mmol/L (98-107); Creatinine Clearance Estimated 42 mL/min (50-200); Estimated Glomerular Filt Rate 50 ml/min (>60); GFR (African American) 60 ML/MIN (>60); Globulin 2.4 g/dL (1.3-3.2); Glucose 199 mg/dl (74-100); Magnesium 1.7 mg/dl (1.6-2.3); Potassium 4.6 mmoL/L (3.5-5.1); Sodium 138 mmol/L (136-145); Total Protein,Serum 6.1 g/dl (6.3-8.2)
--- NOTE | 2024-08-12 12:04 | ED_ITS ---
<Statement entered by Sahnae Wu DO - 08/12/24 16:43> I was consulted by the KIRSTIE, and we discussed the complexity of the problems being addressed. I approved the treatment and management plan for this patient's care in the emergency department, thus performing a substantive portion of the medical decision making. Shanae Wu DO Discharge Plan Disposition Patient Disposition: Home, Self-Care Condition: Good Prescriptions Prescriptions: New amoxicillin 875 mg tablet 875 mg PO BID Qty: 20 0RF doxycycline hyclate 100 mg capsule 100 mg PO BID 14 Days Qty: 28 0RF No Action metformin 1,000 MG tablet 1,000 mg PO BIDWM fosinopril 40 MG tablet 40 mg PO DAILY aspirin 81 MG tablet,chewable 81 mg PO DAILY allopurinol 300 MG tablet 300 mg PO DAILY sertraline 50 MG tablet 50 mg PO DAILY apixaban 5 MG tablet 5 mg PO BID hydrochlorothiazide 25 MG tablet 25 mg PO DAILY glipizide 5 MG tablet 10 mg PO BID carvedilol 25 MG tablet 25 mg PO BID azithromycin 500 MG tablet 500 mg PO DAILY 1 Days Qty: 1 0RF cefdinir 300 MG capsule 300 mg PO BID 7 Days Qty: 13 0RF Referrals Follow up/Referrals: Provider,Referral, MD [Primary Care Provider] - See instructions Activity Restrictions/Add. Instructions Additional Instructions/Restrictions: Please follow-up with your PCP Friday. Please take your antibiotics for your left-sided pneumonia as directed. Return to the ED for worsening of condition. Clinical Impressions Clinical Impression: Pleural effusion Pneumonia Qualifiers: Pneumonia type: due to unspecified organism Laterality: left Lung location: u nspecified part of lung Qualified Code(s): J18.9 - Pneumonia, unspecified organism Instructions Patient Instructions: Pneumonia--Adult, DI for Pleural Effusion Print Language Print Language: Macedonian Discharge ED Provider: Shanae Wu General Adult HPI <Soledad Warren APRN - Last Filed: 08/12/24 20:25> General Chief complaint: Arrhythmia/Palpitations Stated complaint: ARRYTHMIA Time Seen by Provider: 08/12/24 11:48 Mode of Arrival: EMS Source of Information: Patient and EMS Limitations: No Limitations Description of Symptoms (Recalled from ER Triage Doc. by RN): palpitations this morning woke him up patient is on diltiazem and eliquis, per hh his heart rate was 160 afib rvr, per ems hes been 70-120 and sounds of rales in lleft lower lobe. ems gave duoneb and elisafran, pt denies any pain History of Present Illness HPI narrative: Patient is a 73-year-old male PMHx atrial fibrillation (anticoagulated on Eliquis), HTN, DM, history of bacteremia, CHF who presents to the ED for palpitations and dyspnea that started this morning. Patient states the palpitations woke him up around 5:00 this morning. His home health nurse sent him to the ED via EMS. Related Data Home Medications ?Medication ?Instructions ?Recorded ?Confirmed allopurinol 300 mg tablet 300 mg PO DAILY gout 07/02/20 07/02/20 apixaban 5 mg tablet 5 mg PO BID Blood thinner 07/02/20 07/03/20 aspirin 81 mg chewable tablet 81 mg PO DAILY HEART HEALTH 07/02/20 07/02/20 fosinopril 40 mg tablet 40 mg PO DAILY Hypertension 07/02/20 07/02/20 metformin 1,000 mg tablet 1,000 mg PO BIDWM Diabetes 07/02/20 07/03/20 sertraline 50 mg tablet 50 mg PO DAILY Depression 07/02/20 07/02/20 carvedilol 25 mg tablet 25 mg PO BID Hypertension 07/03/20 07/03/20 glipizide 5 mg tablet 10 mg PO BID Diabetes 07/03/20 07/03/20 hydrochlorothiazide 25 mg tablet 25 mg PO DAILY Hypertension 07/03/20 07/03/20 Previous Rx's ?Medication ?Instructions ?Recorded azithromycin 500 mg tablet 500 mg PO DAILY 1 day #1 tab 07/06/20 cefdinir 300 mg capsule 300 mg PO BID 7 days #13 caps 07/06/20 amoxicillin 875 mg tablet 875 mg PO BID #20 tabs 08/12/24 doxycycline hyclate 100 mg capsule 100 mg PO BID 14 days #28 caps 08/12/24 Allergies Allergy/AdvReac Type Severity Reaction Status Date / Time No Known Allergies Allergy Verified 08/12/24 11:58 [facility] <Soledad Warren APRN - Last Filed: 08/12/24 20:25> [facility] Disclaimer: The information contained in this section may have been updated after the patient was seen, as this information can be updated by other users. Social History Smoking Status: Never smoker alcohol intake: never current occupational status: retired Travel in the last 8 weeks: None Have you lived/traveled outside [place] in past 30 days?: No Contact w/someone who lives/traveled outside [place] past 30 days?: No Exposure to someone with infectious disease in past 14 days?: No Do you have a fever (greater than 100.4 F or 38 C)?: No Have you tested positive for COVID-19: No Exposed to someone with COVID-19 in past 14 days?: No Do you have a sore throat?: No Do you have a cough?: No Do you have any weakness?: No Do you have any diarrhea?: No Are you experiencing any unusual bleeding?: No Do you have any muscle aches/pain?: No Do you have any abdominal pain?: No Are you experiencing loss of taste or smell?: No Other Medical History Have you received the Flu Vaccine for this season: No Have you received the Pneumonia Vaccine: No <Soledad Warren APRN - Last Filed: 08/12/24 20:25> ROS Obtained: Yes Systems reviewed as appropriate & no additional complaints except as documented Physical Exam <Soledad Warren APRN - Last Filed: 08/12/24 20:25> General General appearance: alert and in no apparent distress Head Head exam: atraumatic and normocephalic Eye Eye exam: Present normal appearance and PERRL ENT ENT exam: Present normal exam Neck Neck exam: Present normal inspection Chest Chest inspection: Present normal inspection and symmetric chest wall rise; Absent tenderness Respiratory Respiratory exam: Present normal lung sounds bilaterally Cardiovascular Cardiovascular exam: Present regular rate Abdominal Exam Abdominal exam: Present soft and normal bowel sounds; Absent tenderness Extremities Exam Extremities exam: Present normal inspection and full ROM Back Exam Back exam: Present normal inspection and full ROM Neurological Exam Neurological exam: Present alert and oriented X3 Psychiatric Psychiatric exam: Present normal affect and normal mood Skin Skin exam: Present warm and dry Medical Decision Making <Soledad Warren APRN - Last Filed: 08/12/24 20:25> Medical Records Screening: Per USPSTF and CDC recommendations, given the prevalence of disease in our region, it is our hospital?s policy to screen for HIV and viral Hepatitis for all patients aged 18 and over and those with ongoing risk factors. Julio Inquiry Pt receiving controlled substance: No Vital Signs: 08/12/24 11:35 08/12/24 12:01 08/12/24 12:31 Temperature 98.5 F Temperature Source Oral Pulse Rate 78 68 Pulse Rate [Right Radial] 81 Respiratory Rate 20 19 19 Blood Pressure 134/91 H 144/85 H Blood Pressure [Right Arm] 144/84 H Blood Pressure Mean [Right Arm] 104 Blood Pressure Source 02 Sat by Pulse Oximetry 96 93 L 94 L Oxygen Delivery Method Room Air 08/12/24 13:01 08/12/24 14:02 08/12/24 15:06 Temperature 98.5 F Temperature Source Oral Pulse Rate 58 L 77 80 Pulse Rate [Right Radial] Respiratory Rate 19 16 20 Blood Pressure 135/87 162/100 H 160/88 H Blood Pressure [Right Arm] Blood Pressure Mean [Right Arm] Blood Pressure Source Automatic Cuff 02 Sat by Pulse Oximetry 96 97 Oxygen Delivery Method Room Air Room Air 08/12/24 18:04 08/12/24 18:31 Temperature Temperature Source Pulse Rate 74 80 Pulse Rate [Right Radial] Respiratory Rate Blood Pressure 180/101 H 178/113 H Blood Pressure [Right Arm] Blood Pressure Mean [Right Arm] Blood Pressure Source 02 Sat by Pulse Oximetry 99 99 Oxygen Delivery Method Room Air Room Air Lab Data Lab Results 08/12/24 11:38: WBC 9.4, RBC 4.78, Hgb 13.1 L, Hct 40.4 L, MCV 84.5, MCH 27.4, MCHC 32.4, RDW 14.9, Plt Count 136 L, MPV 11.3 H, Neut % (Auto) 76.4, Lymph % (Auto) 9.9 L, [place] % (Auto) 8.1, Eos % (Auto) 2.7, Baso % (Auto) 0.6, Neut # (Auto) 7.2, Lymph # (Auto) 0.9, [place] # (Auto) 0.8, Eos # (Auto) 0.3, Baso # (Auto) 0.1, Sodium 138, Potassium 4.6, Chloride 105, Carbon Dioxide 29, Anion Gap 8.6, BUN 30 H, Creatinine 1.40 H, Estimated Creat Clear 42, Estimated GFR 50 L, Est GFR ( Amer) 60, Glucose 199 H, Calcium 9.3, Magnesium 1.7, Total Bilirubin 0.3, AST 26, ALT 26, Alkaline Phosphatase 89, Troponin I 0.01, N T-Pro-B Natriuret Pep 2130 H, Total Protein 6.1 L, Albumin 3.7, Globulin 2.4, Albumin/Globulin Ratio 1.5, TSH 1.97, Thyroxine (T4) 10.0 08/12/24 13:59: Troponin I < 0.01 08/12/24 11:38 08/12/24 11:38 Orders (Tests/Meds): ED MEDICATIONS Discontinued Medications Generic Name Dose Route Start Last Admin Trade Name Freq PRN Reason Stop Dose Admin Amoxicillin/Clavulanate Potassium 1 each 08/12/24 16:02 08/12/24 17:08 Amoxicillin/Clavulanate Potassium 875/125mg Tablet PO 08/12/24 16:03 1 each ONCE ONE Administration Carvedilol 25 mg 08/12/24 20:01 08/12/24 20:07 Carvedilol 25mg Tablet PO 08/12/24 20:02 Not Given ONCE ONE ORDERS Category Date Time Status CXR --portable [XR chest portable] Stat Exams 08/12/24 11:48 Completed BNP [NT Pro Brain Natriuretic Pep.] Stat Lab 08/12/24 11:38 Completed Complete Blood Count Auto Diff Stat Lab 08/12/24 11:38 Completed Comprehensive Metabolic Panel Stat Lab 08/12/24 11:38 Completed MAG [Magnesium] Stat Lab 08/12/24 11:38 Completed T4 (Thyroxine) Stat Lab 08/12/24 11:38 Completed TSH [Thyroid Stimulating Hormone] Stat Lab 08/12/24 11:38 Completed Trop I [Troponin I] Stat Lab 08/12/24 11:38 Completed Troponin I Q3H Lab 08/12/24 13:59 Completed Medical Decision Narrative: In summary, patient is a 73-year-old male PMHx atrial fibrillation (anticoagulated on Eliquis), HTN, DM, history of bacteremia, CHF who presents to the ED for palpitations and dyspnea that started this morning. Patient states the palpitations woke him up around 05:00 this morning. His home health nurse sent him to the ED via EMS. Patient states he is usually in A-fib, however does not typically have palpitations. He denies chest pain. Upon initial exam, patient is alert, oriented and cooperative. Patient is hemodynamically stable. Physical exam remarkable for obesity, irregular heart rate. Normal respiratory rate. No respiratory distress. Denies fever, chills, headache, visual disturbances, posterior neck pain, chest pain, abdominal pain, nausea, vomiting. Differential diagnosis includes unstable A-fib, ACS, pulmonary embolism, pneumonia, pneumothorax, infectious process, among others. Initial workup will be conducted with hematologic labs, EKG, imaging. I independently interpreted the EKG as atrial fibrillation, rate 95, QT 422, no STEMI. Initial workup reviewed by me. CBC unremarkable for any leukocytosis, stable H&H. CMP remarkable for BUN 30, creatinine 1.40, glucose 199. BNP 2,130. First troponin 0.01. T4 10. Second troponin < 0.01. I informally interpreted the imaging as left-sided pneumonia. Final read reports left-sided pleural effusion and pneumonia. Upon repeat evaluation, patient had an acceptable resolution of symptoms. Patient is able to tolerate PO. Oxygen saturation has remained normal while in the ED. Patient given dose of antibiotics while in the ED. Given this, patient is appropriate to be discharged home at this time. Curb 65 score 1 due to age. Patient has follow-up scheduled with his PCP in 2 days. He has home health nurse daily. We discussed return precautions to the ED, patient verbalized understanding. We discussed taking his antibiotics as directed. He verbalized understanding. <Shanae Wu, DO - Last Filed: 08/12/24 12:06> Vital Signs: 08/12/24 11:35 08/12/24 12:01 08/12/24 12:31 Temperature 98.5 F Temperature Source Oral Pulse Rate 78 68 Pulse Rate [Right Radial] 81 Respiratory Rate 20 19 19 Blood Pressure 134/91 H 144/85 H Blood Pressure [Right Arm] 144/84 H Blood Pressure Mean [Right Arm] 104 Blood Pressure Source 02 Sat by Pulse Oximetry 96 93 L 94 L Oxygen Delivery Method Room Air 08/12/24 13:01 08/12/24 14:02 08/12/24 15:06 Temperature 98.5 F Temperature Source Oral Pulse Rate 58 L 77 80 Pulse Rate [Right Radial] Respiratory Rate 19 16 20 Blood Pressure 135/87 162/100 H 160/88 H Blood Pressure [Right Arm] Blood Pressure Mean [Right Arm] Blood Pressure Source Automatic Cuff 02 Sat by Pulse Oximetry 96 97 Oxygen Delivery Method Room Air Room Air 08/12/24 18:04 08/12/24 18:31 Temperature Temperature Source Pulse Rate 74 80 Pulse Rate [Right Radial] Respiratory Rate Blood Pressure 180/101 H 178/113 H Blood Pressure [Right Arm] Blood Pressure Mean [Right Arm] Blood Pressure Source 02 Sat by Pulse Oximetry 99 99 Oxygen Delivery Method Room Air Room Air Lab Data Lab Results 08/12/24 11:38: WBC 9.4, RBC 4.78, Hgb 13.1 L, Hct 40.4 L, MCV 84.5, MCH 27.4, MCHC 32.4, RDW 14.9, Plt Count 136 L, MPV 11.3 H, Neut % (Auto) 76.4, Lymph % (Auto) 9.9 L, [place] % (Auto) 8.1, Eos % (Auto) 2.7, Baso % (Auto) 0.6, Neut # (Auto) 7.2, Lymph # (Auto) 0.9, [place] # (Auto) 0.8, Eos # (Auto) 0.3, Baso # (Auto) 0.1, Sodium 138, Potassium 4.6, Chloride 105, Carbon Dioxide 29, Anion Gap 8.6, BUN 30 H, Creatinine 1.40 H, Estimated Creat Clear 42, Estimated GFR 50 L, Est GFR ( Amer) 60, Glucose 199 H, Calcium 9.3, Magnesium 1.7, Total Bilirubin 0.3, AST 26, ALT 26, Alkaline Phosphatase 89, Troponin I 0.01, N T-Pro-B Natriuret Pep 2130 H, Total Protein 6.1 L, Albumin 3.7, Globulin 2.4, Albumin/Globulin Ratio 1.5, TSH 1.97, Thyroxine (T4) 10.0 08/12/24 13:59: Troponin I < 0.01 Orders (Tests/Meds): ED MEDICATIONS Discontinued Medications Generic Name Dose Route Start Last Admin Trade Name Freq PRN Reason Stop Dose Admin Amoxicillin/Clavulanate Potassium 1 each 08/12/24 16:02 08/12/24 17:08 Amoxicillin/Clavulanate Potassium 875/125mg Tablet PO 08/12/24 16:03 1 each ONCE ONE Administration Carvedilol 25 mg 08/12/24 20:01 08/12/24 20:07 Carvedilol 25mg Tablet PO 08/12/24 20:02 Not Given ONCE ONE ORDERS Category Date Time Status CXR --portable [XR chest portable] Stat Exams 08/12/24 11:48 Completed BNP [NT Pro Brain Natriuretic Pep.] Stat Lab 08/12/24 11:38 Completed Complete Blood Count Auto Diff Stat Lab 08/12/24 11:38 Completed Comprehensive Metabolic Panel Stat Lab 08/12/24 11:38 Completed MAG [Magnesium] Stat Lab 08/12/24 11:38 Completed T4 (Thyroxine) Stat Lab 08/12/24 11:38 Completed TSH [Thyroid Stimulating Hormone] Stat Lab 08/12/24 11:38 Completed Trop I [Troponin I] Stat Lab 08/12/24 11:38 Completed Troponin I Q3H Lab 08/12/24 13:59 Completed ECG Data Tracing #1: I reviewed this ECG and interpreted as documented below: Atrial fibrillation with a ventricular rate of [address] changes concerning for ischemia. ECG initial impression date: 08/12/24 ECG initial impression time: 11:41 Critical Care <Soledad Warren APRN - Last Filed: 08/12/24 20:25> Critical Care Time Critical Care Time: No
--- NOTE | 2024-08-12 12:15 | PC.NURSE ---
FSBS is 206 @[id number].
[2024-08-12 12:16] LABS: NT Pro Brain Natriuretic Pep. 2130 pg/mL (0-125)
[2024-08-12 12:17] LABS: Troponin I 0.01 ng/ml (0.00-0.034)
[2024-08-12 12:34] LABS: Thyroid Stimulating Hormone 1.97 uIU/mL (0.465-4.68)
--- NOTE | 2024-08-12 14:07 | PC.NURSE ---
rounded on the pt. the pt voices that he does not need anything at this time. call light is within reach of the pt.
[2024-08-12 14:47] LABS: Troponin I < 0.01 ng/ml (0.00-0.034)
--- NOTE | 2024-08-12 15:29 | PC.NURSE ---
Reviewed pt d/c information and medications. Removed IV. Pt states he can not walk and his someone will not be available until late tonight. Checking with [facility] for possible transport back.
--- NOTE | 2024-08-12 15:30 | PC.NURSE ---
rounded on the pt. the pt voices that he does not need anything at this time. call light is within reach of the pt.
[2024-08-12] MEDS: AMOXICILLIN/CLAVULANATE POTASSIUM 875/125MG TABLET 1 EACH PO (17:08)
--- NOTE | 2024-08-12 18:04 | PC.NURSE ---
FSBS is 181 @[id number].
--- NOTE | 2024-08-12 18:45 | PC.NURSE ---
ROUNDED ON THE PT. THE PT VOICES THAT HE DOES NOT NEED ANYTHING AT THIS TIME. CALL LIGHT IS WITHIN REACH OF THE PT.
--- NOTE | 2024-08-12 19:32 | PC.NURSE ---
Rounding complete; waiting on ride
== END 2024-08-12 20:07 | disposition home or self-care (01) ==
PROVIDERS: Emergency Provider Emergency Medicine
DX: J90 Pleural effusion, not elsewhere classified (principal); J18.9 Pneumonia, unspecified organism; R00.2 Palpitations; R06.00 Dyspnea, unspecified
CPT/HCPCS: 71045; 80053; 83735; 83880; 84436; 84443; 84484; 85025; 93005; 99284